=== PATIENT | female | born 1960 | race Hispanic/Latino ===

== ENCOUNTER 2025-04-06 10:28 | Inpatient (IN) | payer SELFPAY ==
[~2025-04-06] VITALS: Ht 170.2 cm; Wt 82.1 kg
[2025-04-06] VITALS (27 sets, daily range): BP systolic 141–225; BP diastolic 54–108; PULSE 80–98; RESP 17–45; TEMP 97–98.2; O2SAT 93–96
[2025-04-06 10:48] LABS: IMMATURE GRANULOCYTE ABSOLUTE 0.03 K/uL (0-1); NUCLEATED RED BLOOD CELLS 0.0 % (0.0-0.19); PLATELET COUNT (AUTO) 236 K/uL (130-400); RED BLOOD CELL COUNT(AUTO) 4.37 MIL/uL (4.00-5.50); RED CELL DISTRIBUTION WIDTH 14.6 % (11.0-15.5); WHITE BLOOD COUNT (AUTO) 8.5 K/uL (4.8-10.8)
--- NOTE | 2025-04-06 10:51 | EKG ---
[facility] Test Date: 2025-04-06 Test Time: 10:38:27 Pat Name: MAURICE BUI Department: ED Room: 227 Gender: F [employer]: [id number] : 1960 Requested By: LEN CORNELL Order Number: [id number] Reading MD: John Jensen Measurements Intervals [place] Rate: 114 P: 67 FL: 173 QRS: 3 QRSD: 109 T: 143 QT: 336 QTc: 462 Interpretive Statements Sinus tachycardia Probable left atrial enlargement LVH with secondary repolarization abnormality No previous ECG available for comparison Electronically Signed On 04-12-2025 10:21:18 CDT by John Jensen Please click the below link to view image of tracing.
[2025-04-06 10:55] LABS: CREATININE 1.1 mg/dL (0.5-1.0); GLOMERULAR FILTR. RATE CALC 56.0 mL/min (>90); GLUCOSE,RANDOM 135.0 mg/dL (70-105); SODIUM SERUM 142.0 mmol/L (136-145); UREA NITROGEN, BLOOD 10.0 mg/dL (7-18)
--- NOTE | 2025-04-06 11:13 | HMCIMG ---
EXAM: CR Chest, 1 View. CLINICAL HISTORY: sob COMPARISON: None provided. FINDINGS: LUNGS: The lungs show no infiltrate or other acute finding. Mild bibasilar airspace disease may reflect atelectasis. PLEURAL SPACES: No evidence of pleural effusion or pneumothorax. MEDIASTINUM: Moderate to severe enlargement of the cardiac silhouette likely reflecting cardiomegaly and/or a pericardial effusion. Mild central pulmonary vascular congestion. BONES: No acute osseous abnormality. IMPRESSION: 1. Moderate to severe cardiomegaly and/or pericardial effusion with mild pulmonary vascular congestion. /[place]
--- NOTE | 2025-04-06 11:43 | ERN ---
General Chief Complaint: Shortness of Breath Stated Complaint: SOB, LLE SWELLING Time Seen by MD: 10:30 Source: patient History of Present Illness Initial Comments Patient is a 64-year-old female coming in complaining of shortness of breath. Patient states that this has been ongoing for three weeks. She also states that she used to follow up with her doctor but has been two years that she has not seen him. She states that shortness of breath has increased with ambulation. Allergies: Coded Allergies: No Known Allergies (Unverified Allergy, Unknown, 04/06/25) Past Medical History Past Medical History: Hypertension Past Surgical History: ROS Dictation CONSTITUTIONAL: No chills, no fever, no weakness, no diaphoresis, no malaise. HEAD/FACE: No signs of trauma. EENT: No eye pain, no blurred vision, no tearing, no double vision, no ear pain, no ear discharge, no nose pain, no nasal congestion, no throat pain, no throat swelling, no mouth pain. RESPIRATORY: No cough, no orthopnea, no SOB, no stridor, no wheezing. CARDIOVASCULAR: No chest pain, no edema, no palpitations, no syncope. GASTROINTESTINAL/ABDOMINAL: No abdominal pain, no constipation, no diarrhea, no nausea, no vomiting. GENITOURINARY: No abnormal discharge, no dysuria, no frequent urination, no hematuria. No complaints of pain in the genitals. MUSCULOSKELETAL: No back pain, no gout, no joint pain, no joint swelling, no muscle pain, no muscle stiffness, no neck pain. INTEGUMENTARY: No change in color, no change in hair/nails, no dryness, no lesion, no lumps, no rash. NEUROLOGICAL/PSYCH: No anxiety, not depressed, no emotional problem, no headache, no numbness, no pre-existing deficit, no history of seizures, no tremors, no weakness. HEMATOLOGIC/LYMPHATIC: Not anemic, no history of blood clots, no apparent bleeding, no bruising, glands not swollen. All Systems Negative, Except as Noted. Physical Exam Physical Exam Dictation VITAL SIGNS: Reviewed. GENERAL APPEARANCE: Alert, oriented x3, no acute distress, obese. HEAD AND FACE: Non-traumatic. EYES: PERRL, pink conjunctivas, eyelid no trauma, anterior chamber clear. EARS: Pinnas intact and no signs of trauma or erythema. Ear canals clear and no discharge. TMs no erythema. NOSE: No discharge, no bleeding. OROPHARYNX: Mouth normal, teeth no caries, tongue pink. Pharynx clear, no erythema. Tonsils no exudates, no abscesses noted. Mucous membrane moist. NECK: Supple, non-tender, no thyromegaly, no masses, no JVD, no bruits. BREAST: Deferred. CHEST: No tenderness, no crepitus, no paradoxical movement, no retractions. LUNGS: Clear, well-ventilated, symmetric, no rales, no wheezing, no rhonchi, no stridor, good breath sounds bilaterally. HEART: Regular rate, regular rhythm, no murmur, no gallops. VASCULAR: No peripheral edema. ABDOMEN: Soft, positive bowel sounds, nondistended, no guarding, nontender, no rebound, no masses no hepatomegaly, no splenomegaly, no Valdez's sign, no hernias. RECTAL: Deferred. GENITAL: Deferred. NEUROLOGICAL: Normal speech, gross motor function intact, gross sensory function intact. MUSCULOSKELETAL: Neck nontender, full range of motion, back nontender, full range of motion. EXTREMITIES: Nontender, full range of motion. SKIN: Color pink, dry, no turgor, no rash, no lacerations, no abrasions, no contusions. LYMPHATICS: Deferred. Results Laboratory and Microbiology Lab and Micro Result Laboratory Tests Test 04/06/25 10:40 04/06/25 11:10 White Blood Count 8.5 K/uL (4.8-10.8) Red Blood Count 4.37 MIL/uL (4.00-5.50) Hemoglobin 12.6 g/dL (12.0-16.0) Hematocrit 39.4 % (36-48) Mean Corpuscular Volume 90.2 fL (79-99) Mean Corpuscular Hemoglobin 28.8 pg (27.0-33.0) Mean Corpuscular Hemoglobin Concent 32.0 g/dL (32.0-36.0) Red Cell Distribution Width 14.6 % (11.0-15.5) Platelet Count 236 K/uL (130-400) Mean Platelet Volume 10.0 fL (7.5-10.5) Immature Granulocyte % (Auto) 0.4 % (0-1) Neutrophils (%) (Auto) 76.2 % (40.0-77.0) Lymphocytes (%) (Auto) 14.8 % (21.0-51.0) L Monocytes (%) (Auto) 6.2 % (3.0-13.0) Eosinophils (%) (Auto) 1.8 % (0.0-8.0) Basophils (%) (Auto) 0.6 % (0.0-5.0) Neutrophils # (Auto) 6.5 K/uL (1.8-7.7) Lymphocytes # (Auto) 1.3 K/uL (1.0-4.8) Monocytes # (Auto) 0.5 K/uL (0.1-1.0) Eosinophils # (Auto) 0.15 K/uL (0.00-0.70) Basophils # (Auto) 0.05 K/uL (0.00-0.20) Absolute Immature Granulocyte (auto 0.03 K/uL (0-1) Nucleated Red Blood Cells 0.0 % (0.0-0.19) Sodium Level 142 mmol/L (136-145) Potassium Level 3.7 mmol/L (3.5-5.1) Chloride Level 106 mmol/L (101-111) Carbon Dioxide Level 28 mmol/L (21-32) Blood Urea Nitrogen 10 mg/dL (7-18) Creatinine 1.1 mg/dL (0.5-1.0) H Glomerular Filtration Rate Calc 56 mL/min (>90) Random Glucose 135 mg/dL (70-105) H Total Calcium 8.8 mg/dL (8.5-10.1) Magnesium Level 1.90 mg/dL (1.80-2.40) Troponin I High Sensitivity 22 ng/L (4-50) B-Type Natriuretic Peptide 1440 pg/mL (0-100) H Urine Color YELLOW (YELLOW) Urine Appearance CLOUDY (CLEAR) H Urine pH 6.5 (5.0-8.0) Urine Specific [place] 1.021 (1.001-1.031) Urine Protein 300 mg/dL (NEGATIVE) H Urine Glucose (UA) NEGATIVE mg/dL (NEGATIVE) Urine Ketones NEGATIVE mg/dL (NEGATIVE) Urine Occult Blood +- (TRACE) (NEGATIVE) H Urine Nitrate 2+ (NEGATIVE) H Urine Bilirubin NEGATIVE mg/dL (NEGATIVE) Urine Urobilinogen 3 mg/dL (0.2-1.0) H Urine Leukocyte Esterase NEGATIVE [place]/uL Urine RBC 2-5 /HPF (0-1) H Urine WBC 6-10 /HPF (0-1) H Urine Squamous Epithelial Cells FEW /HPF (0-2) Urine Bacteria MANY /HPF (None Seen) Urine Hyaline Casts 6-10 /LPF (0-1 /LPF) H Labs Reviewed?: Yes EKG/XRAY/US/CT/MRI EKG Comment 07/07/2025 time 10:38 a.m. Ventricular rate [address] wave elevation or depression X-RAY Comment [facility] [address] [place] [address] [phone] IMAGING REPORT Signed PATIENT: MAURICE BUI MR#: [id number] : 1960 SEX: F AGE: 64 LOCATION: EDH ORDER 1034 STATUS: REG REPORT#: [id number] SERVICE 1031 REASON: sob ORDERING PHYSICIAN: LEN CORNELL MD PROCEDURE: CXR1VW - CHEST 1VW EXAM: CR Chest, 1 View. CLINICAL HISTORY: sob COMPARISON: None provided. FINDINGS: LUNGS: The lungs show no infiltrate or other acute finding. Mild bibasilar airspace disease may reflect atelectasis. PLEURAL SPACES: No evidence of pleural effusion or pneumothorax. MEDIASTINUM: Moderate to severe enlargement of the cardiac silhouette likely reflecting cardiomegaly and/or a pericardial effusion. Mild central pulmonary vascular congestion. BONES: No acute osseous abnormality. IMPRESSION: 1. Moderate to severe cardiomegaly and/or pericardial effusion with mild pulmonary vascular congestion. /[place] DICTATED BY: JESSICA TRIVEDI Jr., MD DATE: 04/06/251211 ELECTRONICALLY SIGNED BY: JESSICA TRIVEDI Jr., MD DATE: 04/06/251211 [facility] MDM: Differential diagnosis: Shortness of breath, pulmonary congestion, acute on chronic CHF exacerbation Rationale: Tests considered and ordered secondary to shared decision making include: labs, ECG and radiology Previous outside records reviewed: Old ER visits. Risk of complication and/or morbidity or mortality of patient management: None Medications-Per medication reconciliation Need for hospitalization: Patient does meet criteria for hospitalization. Need for emergency major/minor surgery: No There are no social concerns with this patient. Prescription drug management Prescriptions will include symptomatic care Patient's prior external medical records from other ER visits were reviewed by me as indicated. Prior testing and results from previous visits were reviewed. Prior tests were taken into account with medical decision making and resource utilization, independent historian/historians were used to obtain complete medical history. I independently interpreted the test that were performed, results were reviewed by me and considered findings on radiology if ordered. Medical management and examination interpretation discussions were had by me with other qualified healthcare professionals as indicated for the patient's care. She will be admitted under the care of hospitalist group for ongoing management. ED Course Orders Procedure Category Date Status Time Cbc With Differential LAB 04/06/25 Complete 10:31 Chest 1vw RAD 04/06/25 Resulted 10:31 12 Lead Ekg Tracing- EKG 04/06/25 Complete Technical 10:31 Magnesium LAB 04/06/25 Complete 10:31 Troponin I High LAB 04/06/25 Complete Sensitivity 10:31 Basic Metabolic Panel LAB 04/06/25 Complete 10:31 B-Type Natriuretic LAB 04/06/25 Complete Peptide 10:31 Urinalysis LAB 04/06/25 Complete W/Microscopic 10:31 Culture Urine DENIA 04/06/25 In Process 11:58 Furosemide 40mg Vial PHA 04/06/25 In Process (Lasix 40mg Vial) 13:30 Current Medications Medications (Trade) Dose Ordered Sig/Thuy Route PRN Reason Start Time Stop Time Status Last Admin Dose Admin Furosemide (LASix 40MG VIAL) 40 mg ONCE IV 04/06/25 13:30 04/06/25 17:30 04/06/25 13:07 Vital Signs Date Time Temp Pulse Resp B/P (MAP) Pulse Ox O2 Delivery O2 Flow Rate FiO2 04/06/25 11:17 98.4 97 22 188/99 97 Room Air* 0 21 04/06/25 10:46 108 24 197/116 97 Room Air* 0 21 04/06/25 10:30 98.4 112 20 206/134 97 Room Air 0 DX & DISP Disposition: Inpatient Decision to Admit Time: 13:32 Departure Impression: Primary Impression: Acute exacerbation of chronic heart failure Additional Impression: Pulmonary congestion Condition: Stable Referrals: SELF,REFERRAL (PCP) LEN CORNELL MD Apr 06, 2025 11:43
[2025-04-06 11:54] LABS: APPEARANCE,URINE CLOUDY (CLEAR); GLUCOSE, URINE (UA) NEGATIVE (NEGATIVE); LEUKOCYTE ESTERASE ,URINE NEGATIVE Leu/uL (NEGATIVE); NITRATE,URINE 2+ (NEGATIVE); OCCULT BLOOD,URINE +- (TRACE) (NEGATIVE)
[2025-04-06 12:30] LABS: SQUAMOUS EPITHELIAL CELL,UR FEW /HPF (0-2)
--- NOTE | 2025-04-06 13:55 | NUR ---
DR. LOVE AT BEDSIDE, EVALUATED PT, PERFORMED PHYSICAL EXAM AND SPOKE TO PT ABOUT ADMISSION.
[2025-04-06] MEDS ORDERED: PoTASSium chl 10% ELIXIR 20MEQ 20 MEQ/15 ML UDCUP PO PRN (14:30)
[2025-04-06] MEDS ORDERED: MAGNESIUM 2GM PREMIX 50ML 50 ML IV PRN (14:30)
[2025-04-06] MEDS ORDERED: ALBUTEROL 0.083% 2.5 MG/3 ML INH IH PRN (14:30)
--- NOTE | 2025-04-06 14:32 | HP ---
[facility] HISTORY AND PHYSICAL Date of Service: Apr 06, 2025 Time of Service: 14:27 HISTORY OF PRESENT ILLNESS: This is a 64-year-old female with past medical history of hypertension who presents to the emergency department due to progressive shortness of breath and worsening lower extremity edema. The patient reports that her symptoms began around July of last year, when she started experiencing dyspnea with regular household activities. Over the past several months, her shortness of breath has gradually worsened, limiting her daily functionality. Approximately1 month ago, she began noticing swelling in both legs, which has since progressed to involve the thighs and pelvic region. She reports significant discomfort and difficulty ambulating due to the edema. She denies recent weight gain but notes a sensation of heaviness in the legs. She has not seen her primary care provider in approximately 2 years. At that time, she was diagnosed with hypertension and was prescribed lisinopril 15 mg daily, which she is compliant with. On arrival to the ED, her blood pressure was markedly elevated at 206/134 mmHg with a heart rate of 112 bpm. Initial labs unremarkable other than an elevated BNP of 1440 pg/mL and a creatinine of 1.1 mg/dL. Urinalysis was positive for p rotein (300), nitrites, and blood. A chest X-ray showed moderate pericardial effusion and moderate pulmonary vascular congestion. She has been admitting to the PCCU for management of hypertension urgency and possible congestive heart failure. Cardiology has been consulted and we are going to follow recommendations. The patient was started on Furosemide 40 mg BID, we will continue to monitor the blood pressure. One dose of Hydralazine 10 mg was administered and will be continued p.r.n. for systolic blood pressure persistently higher than systolic >180. Renal ultrasound and artery Doppler ordered. We will follow up on results and consult nephrology if needed. REVIEW OF SYSTEMS CONSTITUTIONAL: Denies fevers, chills, or night sweats. No unintentional weight loss reported. NEUROLOGICAL: Denies headache, amaurosis fugax, motor weakness, sensory deficit, vertigo/spinning sensation, gait abnormalities, or tremors. ENT: No hearing loss, otalgia, otorrhea, rhinitis, rhinorrhea, hoarseness, or sore throat. CARDIOVASCULAR: Complain of Palpitations. Denies any exertional angina, dyspnea on exertion, orthopnea, paroxysmal nocturnal dyspnea, life-threatening arrhythmias, claudication. PULMONARY: Complain of shortness of breath, worse with activity. Denies cough or hemoptysis. SLEEP: Denies morning headaches, daytime somnolence or napping. Denies difficulty falling asleep, staying asleep, waking from sleep. Denies knowledge of snoring. GASTROINTESTINAL: Denies any type of dysphagia to either liquids or solids. Denies nausea, vomiting, pyrosis, early satiety, abdominal pain, diarrhea, constipation, or changes in stool consistency or caliber. Denies coffee-ground emesis, hematemesis, hematochezia, or melanotic stools. GENITOURINARY: Denies frequency, urgency, nocturia, hematuria or incontinence (Storage/Irritative symptoms.) Low urinary stream, straining to void, urinary intermittency or hesitancy, splitting of the voiding stream, terminal dribbling. ENDOCRINOLOGIC: Denies polyuria, polydipsia, polyphagia or heat/cold intolerances. HEMATOLOGIC: Denies thrombophilia/previous clots, or coagulopathy/bleeding disorders. ONCOLOGIC: Denies personal history of malignancy. DERMATOLOGIC: Denies rashes or pruritus. PAST MEDICAL HISTORY: Hypertension PAST SURGICAL HISTORY: PAST SOCIAL HISTORY: Patient does not consume alcohol and denies use of illicit drugs Smoking at the age of 15 and quit in 2000 FAMILY HISTORY: Non-contributory Coded Allergies: No Known Allergies (Unverified Allergy, Unknown, 04/06/25) PHYSICAL EXAM GENERAL APPEARANCE: The patient is awake, alert, and oriented, in no acute cardiopulmonary distress. NEUROLOGICAL: Cranial nerves II-XII grossly intact. Motor is 5/5 in bilateral upper and lower extremities proximal to distal. No sensory deficits. HEENT: Face is symmetric. Pupils are equal and reactive. Extraocular movements are intact. NECK: Supple. JVD present. No thyromegaly. No submental, submandibular, pre- /postauricular, occipital or supraclavicular lymphadenopathy. CHEST: Normal chest expansion. Telemetry. LUNGS: Bibasilar crackles. No wheezing. Mild increasing work of breathing with exertion. CARDIOVASCULAR: Tachycardic. S1 and S2 normal. No appreciable rubs, murmurs or gallops. ABDOMEN: Soft, nontender, and nondistended. There is no rebound, voluntary guarding, or rigidity. : Deferred. No [place]. EXTREMITIES: 3+ pitting edema bilateral lower extremity up to the pelvis. No erythema or warmth. No calf tenderness. SKIN: No skin breakdown. Vital Sign (Last 24 Hours) 04/06/25 11:17 Temp 98.4 Pulse 97 Resp 22 B/P (MAP) 188/99 Pulse Ox 97 O2 Delivery Room Air* O2 Flow Rate 0 FiO2 21 LABS: Laboratory: Test 04/06/25 11:10 04/06/25 10:40 Range/Units Urine Color YELLOW YELLOW Urine Appearance CLOUDY H CLEAR Urine pH 6.5 5.0-8.0 Urine Specific [place] 1.021 1.001-1.031 Urine Protein 300 H NEGATIVE mg/dL Urine Glucose (UA) NEGATIVE NEGATIVE mg/dL Urine Ketones NEGATIVE NEGATIVE mg/dL Urine Occult Blood +- (TRACE) H NEGATIVE Urine Nitrate 2+ H NEGATIVE Urine Bilirubin NEGATIVE NEGATIVE mg/dL Urine Urobilinogen 3 H 0.2-1.0 mg/dL Urine Leukocyte Esterase NEGATIVE NEGATIVE [place]/uL Urine RBC 2-5 H 0-1 /HPF Urine WBC 6-10 H 0-1 /HPF Urine Squamous Epithelial Cells FEW 0-2 /HPF Urine Bacteria MANY None Seen /HPF Urine Hyaline Casts 6-10 H 0-1 /LPF /LPF White Blood Count 8.5 4.8-10.8 K/uL Red Blood Count 4.37 4.00-5.50 MIL/uL Hemoglobin 12.6 12.0-16.0 g/dL Hematocrit 39.4 36-48 % Mean Corpuscular Volume 90.2 79-99 fL Mean Corpuscular Hemoglobin 28.8 27.0-33.0 pg Mean Corpuscular Hemoglobin Concent 32.0 32.0-36.0 g/dL Red Cell Distribution Width 14.6 11.0-15.5 % Platelet Count 236 130-400 K/uL Mean Platelet Volume 10.0 7.5-10.5 fL Immature Granulocyte % (Auto) 0.4 0-1 % Neutrophils (%) (Auto) 76.2 40.0-77.0 % Lymphocytes (%) (Auto) 14.8 L 21.0-51.0 % Monocytes (%) (Auto) 6.2 3.0-13.0 % Eosinophils (%) (Auto) 1.8 0.0-8.0 % Basophils (%) (Auto) 0.6 0.0-5.0 % Neutrophils # (Auto) 6.5 1.8-7.7 K/uL Lymphocytes # (Auto) 1.3 1.0-4.8 K/uL Monocytes # (Auto) 0.5 0.1-1.0 K/uL Eosinophils # (Auto) 0.15 0.00-0.70 K/uL Basophils # (Auto) 0.05 0.00-0.20 K/uL Absolute Immature Granulocyte (auto 0.03 0-1 K/uL Nucleated Red Blood Cells 0.0 0.0-0.19 % Sodium Level 142 136-145 mmol/L Potassium Level 3.7 3.5-5.1 mmol/L Chloride Level 106 101-111 mmol/L Carbon Dioxide Level 28 21-32 mmol/L Blood Urea Nitrogen 10 7-18 mg/dL Creatinine 1.1 H 0.5-1.0 mg/dL Glomerular Filtration Rate Calc 56 >90 mL/min Random Glucose 135 H 70-105 mg/dL Total Calcium 8.8 8.5-10.1 mg/dL Magnesium Level 1.90 1.80-2.40 mg/dL Troponin I High Sensitivity 22 4-50 ng/L B-Type Natriuretic Peptide 1440 H 0-100 pg/mL Current Medications Medications (Trade) Dose Ordered Sig/Thuy Route PRN Reason Start Time Stop Time Status Last Admin Dose Admin Acetaminophen (TYLenol 325MG TAB) 650 mg Q4H PRN PO MILD PAIN (1-3) 04/06/25 14:30 05/06/25 14:29 Acetaminophen (TYLenol 325MG TAB) 650 mg Q6H PRN PO TEMPERATURE GREATER THAN 101.5 04/06/25 14:30 05/06/25 14:29 Albuterol Sulfate (Proventil 0.083% 2.5mg/3ml) 2.5 mg [id number] PRN IH RESPIRATORY SYMPTOMS 04/06/25 14:30 05/06/25 14:29 Famotidine (Pepcid 20mg Vial) 20 mg BID IV 04/06/25 21:00 05/06/25 20:59 Furosemide (LASix 40MG VIAL) 40 mg BID IVP 04/06/25 21:00 05/06/25 20:59 Furosemide (LASix 40MG VIAL) 40 mg ONCE IV 04/06/25 13:30 04/06/25 14:20 DC 04/06/25 13:07 40 MG Magnesium Sulfate 50 ml @ 0 mls/hr PROTOCOL PRN IV MAGNESIUM PROTOCOL 04/06/25 14:30 05/06/25 14:29 Potassium Chloride 100 ml @ 50 mls/hr AD PRN IV POTASSIUM PROTOCOL 04/06/25 14:30 05/06/25 14:29 Potassium Chloride 100 ml @ 100 mls/hr AD PRN IV POTASSIUM PROTOCOL 04/06/25 14:30 04/06/25 14:22 DC Potassium Chloride (K-Dur/Klor-Con 20meq) 20 meq AD PRN PO POTASSIUM PROTOCOL 04/06/25 14:30 05/06/25 14:29 Potassium Chloride (KCl 10% Elixir 20meq/15ml) 20 meq AD PRN PO POTASSIUM PROTOCOL 04/06/25 14:30 05/06/25 14:29 DIAGNOSTICS / RADIOLOGY: PATIENT: MAURICE BUI MR#: [id number] : 1960 SEX: F AGE: 64 LOCATION: EDH ORDER 1034 STATUS: [facility] REPORT#: [id number] SERVICE 1031 REASON: sob ORDERING PHYSICIAN: LEN CORNELL MD PROCEDURE: CXR1VW - CHEST 1VW EXAM: CR Chest, 1 View. CLINICAL HISTORY: sob COMPARISON: None provided. FINDINGS: LUNGS: The lungs show no infiltrate or other acute finding. Mild bibasilar airspace disease may reflect atelectasis. PLEURAL SPACES: No evidence of pleural effusion or pneumothorax. MEDIASTINUM: Moderate to severe enlargement of the cardiac silhouette likely reflecting cardiomegaly and/or a pericardial effusion. Mild central pulmonary vascular congestion. BONES: No acute osseous abnormality. IMPRESSION: 1. Moderate to severe cardiomegaly and/or pericardial effusion with mild pulmonary vascular congestion. /[place] DICTATED BY: JESSICA TRIVEDI Jr., MD DATE: 04/06/25 1212 ELECTRONICALLY SIGNED BY: JESSICA TRIVEDI Jr., MD DATE: 04/06/25 1212 ASSESSMENT: Hypertensive urgency POA Possible Congestive Heart Failure POA Pericardial effusion POA Proteinuria POA Possible CKD Uncontrolled chronic hypertension PLAN: Hypertensive urgency Admit to PCCU with telemetry CT Head and brain ordered to rule out any bleed Administer hydralazine 10 mg IV p.r.n. if BP >180 mmHg (1 dose given) Transition to oral antihypertensive as tolerated Possible Congestive Heart Failure Cardiology consulted Continue Furosemide 40 mg b.i.d. Daily weights, strict I/Os Monitor for signs of pulmonary edema. Pericardial effusion Echocardiogram to assess size/hemodynamic impact. Possible CKD Proteinuria Urine protein/creatinine ratio ordered. Renal ultrasound ordered Renal artery Doppler ordered Trend temperature and WBC UA culture pending. Start antibiotic as needed PT ordered Continue GI and DVT prophylaxis Reconcile Medications when available ATTESTATION BY PHYSICIAN I have seen and examined the patient. I reviewed the documentation, medical decision making, and treatment plan as noted by the resident provider above. I agree with the findings and plan of care. SAW OSCAR MD, GERARDO MD Apr 06, 2025 14:32
[2025-04-06 14:49] LABS: CREATININE 1.0 mg/dL (0.5-1.0); GLOMERULAR FILTR. RATE CALC 63.0 mL/min (>90); GLUCOSE,RANDOM 97.0 mg/dL (70-105); SODIUM SERUM 141.0 mmol/L (136-145); UREA NITROGEN, BLOOD 11.0 mg/dL (7-18)
[2025-04-06 14:58] LABS: ASPARTATE AMINOTRANSFERASE 21.0 U/L (10-37); TOTAL PROTEIN, SERUM 7.1 g/dL (6.0-8.3)
[2025-04-06 15:04] LABS: PHOSPHORUS 3.7 mg/dL (2.5-4.9)
--- NOTE | 2025-04-06 15:14 | NUR ---
DCP: HOME Pt currently lives with dgt in law. Pt does not report insecurities with food, senior living, and/or utilities. Pt currently works at [employer]. Pt does not have DME, home health, or provider services. Pt is able to complete ADLs independently. PCP is [facility] and uses [facility] for any RX needs. At [place] pt will want to go home and family can assist with transportation. Addendum: 04/06/25 at 1517 by MOISÉS RODRÍGUEZ SS Amended: Links added.
--- NOTE | 2025-04-06 15:54 | HMCIMG ---
EXAM: CT Head Without IV contrast. CLINICAL HISTORY: hypertension urgency TECHNIQUE: Axial computed tomography images of the head/brain without intravenous contrast. COMPARISON: None provided. FINDINGS: BRAIN: No evidence of acute hemorrhage. No mass lesion. No CT evidence for acute territorial infarct. No midline shift or extra-axial collections. VENTRICLES: No hydrocephalus. ORBITS: The orbits are unremarkable. SINUSES AND MASTOIDS: The paranasal sinuses and mastoid air cells are clear. BONES: No fracture. SOFT TISSUES: Unremarkable. IMPRESSION: No acute intracranial abnormality. /[place]
--- NOTE | 2025-04-06 16:07 | NUR ---
FIRST ATTEMPT AT REPORT
--- NOTE | 2025-04-06 16:45 | NUR ---
SECOND ATTEMPT AT REPORT
--- NOTE | 2025-04-06 18:00 | HMCIMG ---
EXAM: US Duplex Arterial/Venous of the Abdomen, Complete. CLINICAL HISTORY: Chronic Kidney Disease (CKD) TECHNIQUE: Real-time duplex ultrasound scan of the arterial and venous flow of the pelvis with color Doppler flow and spectral waveform analysis. COMPARISON: None provided. FINDINGS: AORTA: Peak systolic velocity (PSV) of 104 cm/sec. RENAL ARTERIES: Right renal artery with peak systolic velocity of 226 cm/sec and renal artery to aorta ratio (RAR) of 2.2, consistent with <60% stenosis. Left renal artery with elevated peak systolic velocity of 384 cm/sec and RAR of 3.7, consistent with >60% stenosis. Size: 9.7 x 4.3 x 4.2 cm. Segmental arteries demonstrate tardus-parvus waveform, suggestive of downstream arterial resistance and supportive of hemodynamically significant stenosis. Size: 10.8 x 4.5 x 5.2 cm. Segmental arteries demonstrate tardus-parvus waveform, suggestive of downstream arterial resistance and supportive of hemodynamically significant stenosis, more prominently on the left. IMPRESSION: 1. Left renal artery stenosis >60% with tardus-parvus waveform in segmental arteries, suggesting downstream arterial resistance and supportive of hemodynamically significant stenosis. 2. Right renal artery stenosis <60% with tardus-parvus waveform in segmental arteries, suggesting downstream arterial resistance. /[place]
--- NOTE | 2025-04-06 18:07 | NUR ---
DR LOVE NOTIFED VIA TELEPHONE OF PATIENTS B/P IN THE 200. PATIENT IS ASYMPTOMATIC. ORDERS RECEIVED. PATIENT IS TO BE STARTED ON A CARDENE DRIP AND MOVED TO ICU STAT.
--- NOTE | 2025-04-06 18:25 | NUR ---
TRANSFER- ICU RECEIVED PATIENT TRANSFER INTO ICU FROM [facility] FOR KEYLA WALKER.
--- NOTE | 2025-04-06 18:30 | NUR ---
HOME MEDICATIONS NOT AVAILABLE. PATIENT STATES SHE HAS NOT SEEN AN PCP IN 2 YEARS & HAS NOT BEEN ABLE TO REFILL HER MEDICATIONS. SHE STATES SHE TAKES 1 MEDICATIONS, BUT DOES NOT RECALL THE NAME. ASKED PATIENT TO HAVE FAMILY BRING HER MEDICATION BOTTLES.
[2025-04-06] MEDS: FAMOTIDINE 20MG VIAL IV SCH (21:28)
[2025-04-07] VITALS (57 sets, daily range): BP systolic 126–174; BP diastolic 60–97; PULSE 77–94; RESP 13–33; TEMP 98–98.8; O2SAT 92–96
[2025-04-07 04:24] LABS: IMMATURE GRANULOCYTE ABSOLUTE 0.02 K/uL (0-1); NUCLEATED RED BLOOD CELLS 0.0 % (0.0-0.19); PLATELET COUNT (AUTO) 193 K/uL (130-400); RED BLOOD CELL COUNT(AUTO) 4.24 MIL/uL (4.00-5.50); RED CELL DISTRIBUTION WIDTH 14.4 % (11.0-15.5); WHITE BLOOD COUNT (AUTO) 7.0 K/uL (4.8-10.8)
[2025-04-07 04:35] LABS: CREATININE 0.9 mg/dL (0.5-1.0); GLOMERULAR FILTR. RATE CALC 71.0 mL/min (>90); GLUCOSE,RANDOM 86.0 mg/dL (70-105); SODIUM SERUM 141.0 mmol/L (136-145); UREA NITROGEN, BLOOD 8.0 mg/dL (7-18)
[2025-04-07] MEDS: PoTASSium chloRIDE 20MEQ ER 20 MEQ ERTAB PO PRN (05:27)
--- NOTE | 2025-04-07 09:44 | PN ---
[facility] PROGRESS NOTE Date of Service: Apr 07, 2025 Time of Service: 09:44 SUBJECTIVE: This is a 64-year-old female with past medical history of hypertension who presents to the emergency department due to progressive shortness of breath and worsening lower extremity edema. The patient reports that her symptoms began around July of last year, when she started experiencing dyspnea with regular household activities. Over the past several months, her shortness of breath has gradually worsened, limiting her daily functionality. Approximately1 month ago, she began noticing swelling in both legs, which has since progressed to involve the thighs and pelvic region. She reports significant discomfort and difficulty ambulating due to the edema. She denies recent weight gain but notes a sensation of heaviness in the legs. She has not seen her primary care provider in approximately 2 years. At that time, she was diagnosed with hypertension and was prescribed lisinopril 15 mg daily, which she is compliant with. On arrival to the ED, her blood pressure was markedly elevated at 206/134 mmHg with a heart rate of 112 bpm. Initial labs unremarkable other than an elevated BNP of 1440 pg/mL and a creatinine of 1.1 mg/dL. Urinalysis was positive for protein (300), nitrites, and blood. A chest X-ray showed moderate pericardial effusion and moderate pulmonary vascular congestion. She was given two doses of hydralazine and furosemide 40mg in the ER. After this her blood pressure is 225/106 so she was started on nicardipine drip and moved to [facility]. After the nicardipine drip her blood pressure is 152/65. Nicardipine drip was discontinued and furosemide 40 mg was added. Cardiology consult, echocardiogram and protein creatinine ratio are ordered. 04/07/2025: She was seen in room 215. She is having no symptoms. His vitals are in the normal except for blood pressure which is 155/71. Her labs show that potassium is 3, creatinine is 0.9, Albumin is 3.4. Her head CT is normal. US abdominal arterial study showed left artery stenosis >60% and right artery stenosis <60%. Her echocardiogram showed that the left ventricle is mildly dilated, LVEF is 30-35%, hypokinetic basal inferoseptal segment, stage II diastolic dysfunction, the right ventricle is severely dilated, right ventricular systolic function is mildly reduced, the left atrium is mildly dilated, the right atrium is severely dilated. cardiology saw the patient and they recommended to continue lasix 40mg, losartan 50mg and start metoprolol tartarate 25mg, spironolactone 25mg, also patient need to go an ischemic evaluation to assess coronary anatomy prior to discharge. Will follow their recommendations. REVIEW OF SYSTEMS CONSTITUTIONAL: Denies fevers, chills, or night sweats. No unintentional weight loss reported. NEUROLOGICAL: Denies headache, amaurosis fugax, motor weakness, sensory deficit, vertigo/spinning sensation, gait abnormalities, or tremors. ENT: No hearing loss, otalgia, otorrhea, rhinitis, rhinorrhea, hoarseness, or sore throat. CARDIOVASCULAR: Denies any exertional angina, palpitations, dyspnea on exertion, orthopnea, paroxysmal nocturnal dyspnea, life-threatening arrhythmias, claudication. PULMONARY: No shortness of breath, worse with activity. Denies cough or hemoptysis. SLEEP: Denies morning headaches, daytime somnolence or napping. Denies difficulty falling asleep, staying asleep, waking from sleep. Denies knowledge of snoring. GASTROINTESTINAL: Denies any type of dysphagia to either liquids or solids. Denies nausea, vomiting, pyrosis, early satiety, abdominal pain, diarrhea, constipation, or changes in stool consistency or caliber. Denies coffee-ground emesis, hematemesis, hematochezia, or melanotic stools. GENITOURINARY: Denies frequency, urgency, nocturia, hematuria or incontinence (Storage/Irritative symptoms.) Low urinary stream, straining to void, urinary intermittency or hesitancy, splitting of the voiding stream, terminal dribbling. ENDOCRINOLOGIC: Denies polyuria, polydipsia, polyphagia or heat/cold intolerances. HEMATOLOGIC: Denies thrombophilia/previous clots, or coagulopathy/bleeding disorders. ONCOLOGIC: Denies personal history of malignancy. DERMATOLOGIC: Denies rashes or pruritus. PHYSICAL EXAM GENERAL APPEARANCE: The patient is awake, alert, and oriented, in no acute cardiopulmonary distress. NEUROLOGICAL: Cranial nerves II-XII grossly intact. Motor is 5/5 in bilateral upper and lower extremities proximal to distal. No sensory deficits. HEENT: Face is symmetric. Pupils are equal and reactive. Extraocular movements are intact. NECK: Supple. JVD present. No thyromegaly. No submental, submandibular, pre- /postauricular, occipital or supraclavicular lymphadenopathy. CHEST: Normal chest expansion. Telemetry. LUNGS: Bibasilar crackles. No wheezing. Mild increasing work of breathing with exertion. CARDIOVASCULAR: Tachycardic. S1 and S2 normal. No appreciable rubs, murmurs or gallops. ABDOMEN: Soft, nontender, and nondistended. There is no rebound, voluntary guarding, or rigidity. : Deferred. No [place]. EXTREMITIES: 3+ pitting edema bilateral lower extremity up to the pelvis. No erythema or warmth. No calf tenderness. SKIN: No skin breakdown. Vital Signs (last 8hr) Date Time Temp Pulse Resp B/P (MAP) Pulse Ox O2 Delivery O2 Flow Rate FiO2 04/07/25 07:04 81 16 N/Cannula Low lpm 2.0 28 04/07/25 06:57 84 20 144/71 (95) 96 04/07/25 06:42 84 17 147/77 (100) 94 04/07/25 06:27 77 20 139/73 (95) 95 04/07/25 06:12 81 17 142/72 (95) 94 04/07/25 05:57 84 19 145/77 (99) 94 04/07/25 05:42 78 17 140/70 (93) 96 04/07/25 05:27 77 17 150/65 (93) 96 04/07/25 05:12 83 19 154/71 (98) 95 04/07/25 04:57 84 20 155/71 (99) 92 04/07/25 04:42 83 20 160/80 (106) 92 04/07/25 04:27 81 18 143/72 (95) 92 04/07/25 04:12 84 18 131/66 (87) 94 04/07/25 04:00 96 Nasal Cannula* 2 28 04/07/25 03:56 98.4 86 21 137/83 (101) 93 04/07/25 03:42 94 23 130/79 (96) 92 04/07/25 03:27 88 18 141/78 (99) 93 04/07/25 03:12 90 19 147/79 (101) 95 04/07/25 02:57 86 19 146/78 (100) 94 04/07/25 02:42 81 18 140/73 (95) 92 04/07/25 02:27 80 19 140/67 (91) 92 04/07/25 02:12 86 21 138/70 (92) 94 04/07/25 02:04 89 33 136/78 (97) 94 LABS: Laboratory: Test 04/07/25 03:54 04/06/25 14:33 04/06/25 11:10 04/06/25 10:40 Range/Units White Blood Count 7.0 4.8-10.8 K/uL Red Blood Count 4.24 4.00-5.50 MIL/uL Hemoglobin 12.3 12.0-16.0 g/dL Hematocrit 37.2 36-48 % Mean Corpuscular Volume 87.7 79-99 fL Mean Corpuscular Hemoglobin 29.0 27.0-33.0 pg Mean Corpuscular Hemoglobin Concent 33.1 32.0-36.0 g/dL Red Cell Distribution Width 14.4 11.0-15.5 % Platelet Count 193 130-400 K/uL Mean Platelet Volume 10.0 7.5-10.5 fL Immature Granulocyte % (Auto) 0.3 0-1 % Neutrophils (%) (Auto) 72.8 40.0-77.0 % Lymphocytes (%) (Auto) 14.2 L 21.0-51.0 % Monocytes (%) (Auto) 9.3 3.0-13.0 % Eosinophils (%) (Auto) 2.7 0.0-8.0 % Basophils (%) (Auto) 0.7 0.0-5.0 % Neutrophils # (Auto) 5.1 1.8-7.7 K/uL Lymphocytes # (Auto) 1.0 1.0-4.8 K/uL Monocytes # (Auto) 0.7 0.1-1.0 K/uL Eosinophils # (Auto) 0.19 0.00-0.70 K/uL Basophils # (Auto) 0.05 0.00-0.20 K/uL Absolute Immature Granulocyte (auto 0.02 0-1 K/uL Nucleated Red Blood Cells 0.0 0.0-0.19 % Sodium Level 141 136-145 mmol/L Potassium Level 3.0 *L 3.5-5.1 mmol/L Chloride Level 106 101-111 mmol/L Carbon Dioxide Level 28 21-32 mmol/L Blood Urea Nitrogen 8 7-18 mg/dL Creatinine 0.9 0.5-1.0 mg/dL Glomerular Filtration Rate Calc 71 >90 mL/min Random Glucose 86 70-105 mg/dL Total Calcium 8.7 8.5-10.1 mg/dL Phosphorus Level 3.7 2.5-4.9 mg/dL Magnesium Level 1.90 1.80-2.40 mg/dL Total Bilirubin 1.0 0.2-1.0 mg/dL Aspartate Amino Transf (AST/SGOT) 21 10-37 U/L Alanine Aminotransferase (ALT/SGPT) 15 12-78 U/L Alkaline Phosphatase 83 50-136 U/L Troponin I High Sensitivity 23 4-50 ng/L Total Protein 7.1 6.0-8.3 g/dL Albumin 3.4 L 3.5-5.0 g/dL Urine Color YELLOW YELLOW Urine Appearance CLOUDY H CLEAR Urine pH 6.5 5.0-8.0 Urine Specific [place] 1.021 1.001-1.031 Urine Protein 300 H NEGATIVE mg/dL Urine Glucose (UA) NEGATIVE NEGATIVE mg/dL Urine Ketones NEGATIVE NEGATIVE mg/dL Urine Occult Blood +- (TRACE) H NEGATIVE Urine Nitrate 2+ H NEGATIVE Urine Bilirubin NEGATIVE NEGATIVE mg/dL Urine Urobilinogen 3 H 0.2-1.0 mg/dL Urine Leukocyte Esterase NEGATIVE NEGATIVE [place]/uL Urine RBC 2-5 H 0-1 /HPF Urine WBC 6-10 H 0-1 /HPF Urine Squamous Epithelial Cells FEW 0-2 /HPF Urine Bacteria MANY None Seen /HPF Urine Hyaline Casts 6-10 H 0-1 /LPF /LPF B-Type Natriuretic Peptide 1440 H 0-100 pg/mL Current Medications Medications (Trade) Dose Ordered Sig/Thuy Route PRN Reason Start Time Stop Time Status Last Admin Dose Admin Acetaminophen (TYLenol 325MG TAB) 650 mg Q4H PRN PO MILD PAIN (1-3) 04/06/25 14:30 05/06/25 14:29 Acetaminophen (TYLenol 325MG TAB) 650 mg Q6H PRN PO TEMPERATURE GREATER THAN 101.5 04/06/25 14:30 05/06/25 14:29 Albuterol Sulfate (Proventil 0.083% 2.5mg/3ml) 2.5 mg [id number] PRN IH RESPIRATORY SYMPTOMS 04/06/25 14:30 05/06/25 14:29 Famotidine (Pepcid 20mg Vial) 20 mg BID IV 04/06/25 21:00 04/07/25 09:06 DC 04/06/25 21:28 20 MG Famotidine (Pepcid 20mg Tab) 20 mg BID PO 04/07/25 21:00 05/07/25 20:59 Furosemide (LASix 40MG VIAL) 40 mg BID IVP 04/06/25 21:00 05/06/25 20:59 04/07/25 08:56 40 MG Furosemide (LASix 40MG VIAL) 40 mg ONCE IV 04/06/25 13:30 04/06/25 14:20 DC 04/06/25 13:07 40 MG Hydralazine HCl (APRESOLine 20MG INJ) 10 mg ONCE IV 04/06/25 15:00 04/06/25 14:57 DC Hydralazine HCl (APRESOLine 20MG INJ) 10 mg ONCE IV 04/06/25 16:00 04/06/25 18:00 DC 04/06/25 17:53 10 MG Hydralazine HCl (APRESOLine 20MG INJ) 10 mg Q4H PRN IV ADMINISTER FOR SBP > 180 04/06/25 18:20 05/06/25 18:19 Magnesium Sulfate 50 ml @ 0 mls/hr PROTOCOL PRN IV MAGNESIUM PROTOCOL 04/06/25 14:30 05/06/25 14:29 Nicardipine HCl 25 mg/Sodium Chloride 250 ml @ 0 mls/hr PROTOCOL IV 04/06/25 18:30 04/06/25 21:30 DC Nicardipine HCl 25 mg/Sodium Chloride 250 ml @ 0 mls/hr PROTOCOL IV 04/06/25 22:30 05/06/25 18:29 Cancel Nicardipine HCl 50 mg/Sodium Chloride 250 ml @ 0 mls/hr PROTOCOL IV 04/06/25 19:00 05/06/25 18:59 Potassium Chloride 100 ml @ 50 mls/hr AD PRN IV POTASSIUM PROTOCOL 04/06/25 14:30 05/06/25 14:29 Potassium Chloride 100 ml @ 100 mls/hr AD PRN IV POTASSIUM PROTOCOL 04/06/25 14:30 04/06/25 14:22 DC Potassium Chloride (K-Dur/Klor-Con 20meq) 20 meq AD PRN PO POTASSIUM PROTOCOL 04/06/25 14:30 05/06/25 14:29 04/07/25 08:55 20 MEQ Potassium Chloride (KCl 10% Elixir 20meq/15ml) 20 meq AD PRN PO POTASSIUM PROTOCOL 04/06/25 14:30 05/06/25 14:29 DIAGNOSTICS / RADIOLOGY: [facility] [address] [place] [address] IMAGING REPORT Signed PATIENT: MAURICE BUI MR#: [id number] : 1960 SEX: F AGE: 64 LOCATION: 2DH ORDER 140 STATUS: ADM IN [facility] REPORT#: [id number] SERVICE 1401 REASON: ckd ORDERING PHYSICIAN: CHRISS MAR MD PROCEDURE: LELAND ART DO - US RENAL ARTERY DOPPLER EXAM: US Duplex Arterial/Venous of the Abdomen, Complete. CLINICAL HISTORY: Chronic Kidney Disease (CKD) TECHNIQUE: Real-time duplex ultrasound scan of the arterial and venous flow of the pelvis with color Doppler flow and spectral waveform analysis. COMPARISON: None provided. FINDINGS: AORTA: Peak systolic velocity (PSV) of 104 cm/sec. RENAL ARTERIES: Right renal artery with peak systolic velocity of 226 cm/sec and renal artery to aorta ratio (RAR) of 2.2, consistent with <60% stenosis. Left renal artery with elevated peak systolic velocity of 384 cm/sec and RAR of 3.7, consistent with >60% stenosis. Size: 9.7 x 4.3 x 4.2 cm. Segmental arteries demonstrate tardus-parvus waveform, suggestive of downstream arterial resistance and supportive of hemodynamically significant stenosis. Size: 10.8 x 4.5 x 5.2 cm. Segmental arteries demonstrate tardus-parvus waveform, suggestive of downstream arterial resistance and supportive of hemodynamically significant stenosis, more prominently on the left. IMPRESSION: 1. Left renal artery stenosis >60% with tardus-parvus waveform in segmental arteries, suggesting downstream arterial resistance and supportive of hemodynamically significant stenosis. 2. Right renal artery stenosis <60% with tardus-parvus waveform in segmental arteries, suggesting downstream arterial resistance. /[place] DICTATED BY: SERA BREWER MD DATE: 04/06/251858 ELECTRONICALLY SIGNED BY: SERA BREWER MD DATE: 04/06/251858 [facility] [address] [place] [id number] IMAGING REPORT Signed PATIENT: MAURICE BUI MR#: [id number] : 1960 SEX: F AGE: 64 LOCATION: EDHIP ORDER 1419 STATUS: ADM IN REPORT#: [id number] SERVICE 08 REASON: hypertension urgency ORDERING PHYSICIAN: ARAM HERNANDEZ MD PROCEDURE: HEAD WO - CT HEAD/BRAIN W/O CONTRAST EXAM: CT Head Without IV contrast. CLINICAL HISTORY: hypertension urgency TECHNIQUE: Axial computed tomography images of the head/brain without intravenous contrast. COMPARISON: None provided. FINDINGS: BRAIN: No evidence of acute hemorrhage. No mass lesion. No CT evidence for acute territorial infarct. No midline shift or extra-axial collections. VENTRICLES: No hydrocephalus. ORBITS: The orbits are unremarkable. SINUSES AND MASTOIDS: The paranasal sinuses and mastoid air cells are clear. BONES: No fracture. SOFT TISSUES: Unremarkable. IMPRESSION: No acute intracranial abnormality. /[place] DICTATED BY: SERA BREWER MD DATE: 04/06/251652 ELECTRONICALLY SIGNED BY: SERA BREWER MD DATE: 04/06/251652 [facility] [address] [place] [id number] IMAGING REPORT Signed PATIENT: MAURICE BUI MR#: [id number] : 1960 SEX: F AGE: 64 LOCATION: 2CH ORDER 1401 STATUS: ADM IN REPORT#: [id number] SERVICE 1359 REASON: chf ORDERING PHYSICIAN: CHRISS MAR MD PROCEDURE: ECHO CMP - ECHO 2-D COMPLETE APPROVED REPORT EXAM: Two-dimensional and M-mode echocardiogram with Doppler and color Doppler. INDICATION ICD: congestive heart failure 2D Dimensions RVDd 5.3 cm LVEF(%) 45.0 (>50%) LVED Vol(simp.) 142.0 mL IVSd 1.2 (0.7-1.1cm) FS(%) 23 % LVES Vol(simp.) 97.0 mL LVDd 5.8 (3.8-5.6cm) LA (2D) 4.7 (1.6-4.0cm) LVEF(%, simp.) 32 % PWd 1.6 (0.7-1.1cm) Ao Root(2D) 2.8 (2.0-3.7cm) LA ESV INDEX (BP) 38.51 mL/m2 LVDs 4.4 (2.5-4.0cm) LVOT diam 2.0 (1.8-2.4cm) IVC diam 2.0 cm Deformation Strain Apical 4 -7.6 % Apical 2 -10.4 % Apical 3 -7.1 % Global Strain -8.4 % M-Mode Dimensions EPSS 1.5 cm LA (MM) 5.5 (1.6-4.0cm) Ao Root(MM) 2.5 (2.0-3.7cm) Aortic Valve AoV Vmax 1.6 m/s Ao Peak GR 10.1 mmHg LVOT Vmax 1.1 m/s AoV VTI 0.3 m Ao Mean GR 5.9 mmHg LVOT VTI 0.17 m ALICIA (VMAX) 2.19 cm2 ALICIA (VTI) 1.8 cm2 Mitral Valve MV E Vmax 91.6 cm/s DECEL Time 166 ms MV A Vmax 76.2 cm/s P 1/2 T 37 ms E/A ratio 1.2 MVA (PHT) 5.9 cm2 TDI E/E' Medial 17.6 E/E' Lateral 16.7 Medial E' Peak V 5.20 cm/s Lateral E' Peak V 5.47 cm/s Pulmonary Valve PV Vmax 1.2 m/s PV VTI 0.22 m PV Mean GR 3.0 mmHg PV Peak GR 5.9 mmHg PI End Shawanda. Ernesto 120.3 cm/s Tricuspid Valve TR Vmax 2.6 m/s RAP (EST) 3 mmHg RVSP 31.6 mmHg TR Peak GR 28.6 mmHg Left Ventricle The left ventricle is mildly dilated. Hypokinetic basal inferoseptal segment. Moderate concentric left ventricular hypertrophy. LVEF is 30-35%. Stage II di astolic dysfunction. Right Ventricle The right ventricle is severely dilated. Right ventricular systolic function is mildly reduced. Atria The left atrium is mildly dilated. The right atrium is severely dilated. Aortic Valve The aortic valve is normal in structure and function. No aortic regurgitation is present. There is no aortic valvular stenosis. Mitral Valve The mitral valve is normal in structure. Mitral regurgitation is trace. There is no mitral valve stenosis. Tricuspid Valve The tricuspid valve is normal in structure. There is mild tricuspid valve regurgitation noted. Pulmonic Valve The pulmonary valve is normal in structure. There is trace pulmonic valvular regurgitation. Great Vessels The aortic root is normal in size. The IVC is normal in size and collapses >50% with inspiration. Pericardium No pericardial effusion. Other Information Quality : Good Rhythm : NSR Conclusion The left ventricle is mildly dilated. LVEF is 30-35%. Hypokinetic basal inferoseptal segment. Stage II diastolic dysfunction. The right ventricle is severely dilated. Right ventricular systolic function is mildly reduced. The left atrium is mildly dilated. The right atrium is severely dilated. DICTATED BY: ALEXSANDRA GONZALEZ DO DATE: 04/07/25 1016 ELECTRONICALLY SIGNED BY: ALEXSANDRA GONZALEZ DO DATE: 04/07/25 1336 ASSESSMENT: Hypertensive urgency POA Uncontrolled chronic hypertension Acute on chronic combined systolic and diastolic heart failure Pericardial effusion POA Hypokalemia Proteinuria POA Possible CKD PLAN: Hypertensive urgency Uncontrolled chronic hypertension Her BP at the time of admission is 206/134. Today her blood pressure is 155/71. CT head is normal Abdominal arterial ultrasound showed left artery stenosis >60% and right artery stenosis <60%. Cardiology was consulted and they recommended to continue Lasix 40 mg IV b.i.d, started on metoprolol tartrate 25 mg every 8 hours and spironolactone 25 mg daily. Will follow their recommendations. Acute on chronic combined systolic and diastolic heart failure 2D echo on 04/07/2025 with an EF of 30-35%, stage II diastolic dysfunction, hypokinetic basal inferoseptal segment, mildly reduced RV systolic function, mildly dilated left atrium, and severely dilated right atrium BNP of 1440 CXR with cardiomegaly and pulmonary vascular congestion Cardiology was consulted and they recommended to continue Lasix 40 mg IV b.i.d, started on metoprolol tartrate 25 mg every 8 hours and spironolactone 25 mg daily, undergo an ischemic evaluation to assess coronary anatomy prior to discharge. Will follow their recommendations. Lipid panel, BMP are ordered. Pericardial effusion Echocardiogram is ordered and it showed no pericardial effusion. Hypokalemia Today his potassium level is 3. We replaced potassium today. Will repeat the labs tomorrow. Possible CKD Proteinuria Urinalysis showed protein 300, nitrates 2+. Urine culture is ordered and the preliminary report >100,000 CFU gram negative rods. Urine protein/creatinine ratio ordered. DVT prophylaxis with SCD. GI prophylaxis with famotidine. ATTESTATION BY PHYSICIAN I have seen and examined the patient. I reviewed the documentation, medical decision making, and treatment plan as noted by the resident provider above. I agree with the findings and plan of care. Chriss Mar MD, AKSHAY MD Apr 07, 2025 09:44
[2025-04-07] MEDS: amLODIPine 5 MG TAB PO SCH (10:47)
--- NOTE | 2025-04-07 12:18 | CONS ---
[facility] CARDIOLOGY CONSULTATION REPORT Cardiology consultation note dictated for Michelle Ribeiro MD Date Patient Seen: Apr 07, 2025 Requesting Physician: Chriss Mar MD Reason for Consultation: Concern for CHF and hypertensive urgency History of Present Illness: This is a 64-year-old female with a past history of hypertension who presented to the ED complaints of dyspnea on minimal exertion and bilateral lower extremity edema. Cardiology has been consulted for concern for CHF and hypertensive urgency. The patient endorsed increasing fatigue and dyspnea on exertion since July 2024. Over the last month and a half, she noticed her bilateral lower extremities swelling with extension up to her abdomen. Over the last 3 weeks, she began to experience orthopnea, PND, and progressive dyspnea with minimal exertion. BNP of 1440. Chest x-ray demonstrated cardiomegaly and pulmonary vascular congestion. She is currently being diuresed with Lasix 40 mg IV b.i.d.. 2D echocardiogram has been ordered and is pending. She also presented with an elevated blood pressure of 206/134 mmHg. She has been weaned off the Cardene drip. Current blood pressure is 168/87 mmHg. Past Medical History: As per HPI and summarized below Past Surgical History: Family History: The patient's mother has hypertension. The patient's father of a presumed ruptured aneurysm. Social History: The patient lives with family. Habits: The patient denies alcohol, tobacco, or illicit drug use. Home Meds: None Current Meds: Medications Dose Ordered Sig/Thuy Start Time Stop Time Status Last Admin Acetaminophen 650 mg Q6H PRN 04/06/25 14:30 05/06/25 14:29 Acetaminophen 650 mg Q4H PRN 04/06/25 14:30 05/06/25 14:29 Albuterol Sulfate 2.5 mg U1AFALL PRN 04/06/25 14:30 05/06/25 14:29 Furosemide 40 mg BID 04/06/25 21:00 05/06/25 20:59 04/07/25 08:56 Magnesium Sulfate 50 ml @ 0 mls/hr PROTOCOL PRN 04/06/25 14:30 05/06/25 14:29 Potassium Chloride 20 meq AD PRN 04/06/25 14:30 05/06/25 14:29 Potassium Chloride 20 meq AD PRN 04/06/25 14:30 05/06/25 14:29 04/07/25 10:52 Potassium Chloride 100 ml @ 50 mls/hr AD PRN 04/06/25 14:30 05/06/25 14:29 Hydralazine HCl 10 mg Q4H PRN 04/06/25 18:20 05/06/25 18:19 Famotidine 20 mg BID 04/07/25 21:00 05/07/25 20:59 Losartan Potassium 50 mg DAILY 04/07/25 11:00 05/07/25 10:59 04/07/25 10:47 Amlodipine Besylate 5 mg DAILY 04/07/25 11:00 05/07/25 10:59 04/07/25 10:47 Review of Systems: CONST: No fever, fatigue, or weight changes. EYES: No recent vision problems. ENT: No congestion, ear pain, or sore throat. C/V: No chest pain, palpitations, or edema. RESP: No cough, congestion, wheezing or shortness of breath. GI: No abdominal pain, nausea, vomiting, constipation, or diarrhea. : No incontinence or dysuria. SKIN: No rash. NEURO: No headache, focal numbness or weakness, dizziness, or seizures. PSYCH: No depression or anxiety. HEME: No abnormal bruising or bleeding. LYMPH: No swollen glands. Physical Examination: GENERAL: No acute distress. HEAD: Normal with no signs of head trauma. EYES: PERRLA, EOMI, conjunctiva and sclera normal. ENT: Hearing grossly intact, normal oropharynx. NECK: Supple without JVD. There is no tenderness, lymphadenopathy, or masses. No thyromegaly. Normal carotid upstrokes without bruits. LUNGS: Clear breath sounds bilaterally. No wheezes, or rhonchi. HEART: Normal rate and rhythm. Normal S1 and S2 without murmurs, gallop or rub. VASC: Peripheral pulses +1 bilaterally. ABD: Bowel sounds normal, soft, nontender, no masses, no organomegaly. No audible bruits. : Not examined LYMPH: No lymphadenopathy noted. EXT: LLE with 1 to 2+ edema, RLE with trace to 1+ edema. Anasarca with edema to legs and lower abdomen. SKIN: No rashes or lesions noted. NEURO: Awake, alert, and oriented x3. No focal sensory or strength deficits noted. Vital Signs (last 8hr) Date Time Temp Pulse Resp B/P (MAP) Pulse Ox O2 Delivery O2 Flow Rate FiO2 04/07/25 08:48 84 22 140/69 (92) 94 04/07/25 08:30 82 20 126/74 (91) 94 04/07/25 08:15 88 20 145/73 (97) 93 04/07/25 08:00 80 20 152/88 (109) 93 60 04/07/25 07:45 98.1 79 24 146/80 (102) 97 04/07/25 07:15 89 17 144/71 (95) 95 04/07/25 07:04 81 16 N/Cannula Low lpm 2.0 28 04/07/25 07:00 80 16 147/77 (100) 96 21 04/07/25 06:57 84 20 144/71 (95) 96 04/07/25 06:42 84 17 147/77 (100) 94 04/07/25 06:27 77 20 139/73 (95) 95 04/07/25 06:12 81 17 142/72 (95) 94 04/07/25 05:57 84 19 145/77 (99) 94 04/07/25 05:42 78 17 140/70 (93) 96 04/07/25 05:27 77 17 150/65 (93) 96 04/07/25 05:12 83 19 154/71 (98) 95 04/07/25 04:57 84 20 155/71 (99) 92 04/07/25 04:42 83 20 160/80 (106) 92 04/07/25 04:27 81 18 143/72 (95) 92 Laboratory: Hematology Labs: Test 04/07/25 03:54 Range/Units White Blood Count 7.0 4.8-10.8 K/uL Red Blood Count 4.24 4.00-5.50 MIL/uL Hemoglobin 12.3 12.0-16.0 g/dL Hematocrit 37.2 36-48 % Mean Corpuscular Volume 87.7 79-99 fL Mean Corpuscular Hemoglobin 29.0 27.0-33.0 pg Mean Corpuscular Hemoglobin Concent 33.1 32.0-36.0 g/dL Red Cell Distribution Width 14.4 11.0-15.5 % Platelet Count 193 130-400 K/uL Mean Platelet Volume 10.0 7.5-10.5 fL Immature Granulocyte % (Auto) 0.3 0-1 % Neutrophils (%) (Auto) 72.8 40.0-77.0 % Lymphocytes (%) (Auto) 14.2 L 21.0-51.0 % Monocytes (%) (Auto) 9.3 3.0-13.0 % Eosinophils (%) (Auto) 2.7 0.0-8.0 % Basophils (%) (Auto) 0.7 0.0-5.0 % Neutrophils # (Auto) 5.1 1.8-7.7 K/uL Lymphocytes # (Auto) 1.0 1.0-4.8 K/uL Monocytes # (Auto) 0.7 0.1-1.0 K/uL Eosinophils # (Auto) 0.19 0.00-0.70 K/uL Basophils # (Auto) 0.05 0.00-0.20 K/uL Absolute Immature Granulocyte (auto 0.02 0-1 K/uL Nucleated Red Blood Cells 0.0 0.0-0.19 % Chemistry Labs: Test 04/07/25 03:54 04/06/25 14:33 04/06/25 10:40 Range/Units Sodium Level 141 136-145 mmol/L Potassium Level 3.0 *L 3.5-5.1 mmol/L Chloride Level 106 101-111 mmol/L Carbon Dioxide Level 28 21-32 mmol/L Blood Urea Nitrogen 8 7-18 mg/dL Creatinine 0.9 0.5-1.0 mg/dL Glomerular Filtration Rate Calc 71 >90 mL/min Random Glucose 86 70-105 mg/dL Total Calcium 8.7 8.5-10.1 mg/dL Phosphorus Level 3.7 2.5-4.9 mg/dL Magnesium Level 1.90 1.80-2.40 mg/dL Total Bilirubin 1.0 0.2-1.0 mg/dL Aspartate Amino Transf (AST/SGOT) 21 10-37 U/L Alanine Aminotransferase (ALT/SGPT) 15 12-78 U/L Alkaline Phosphatase 83 50-136 U/L Troponin I High Sensitivity 23 4-50 ng/L Total Protein 7.1 6.0-8.3 g/dL Albumin 3.4 L 3.5-5.0 g/dL B-Type Natriuretic Peptide 1440 H 0-100 pg/mL Diagnostics / Radiology: 2D echocardiogram on 04/07/2025 Conclusion The left ventricle is mildly dilated. LVEF is 30-35%. Hypokinetic basal inferoseptal segment. Stage II diastolic dysfunction. The right ventricle is severely dilated. Right ventricular systolic function is mildly reduced. The left atrium is mildly dilated. The right atrium is severely dilated. DICTATED BY: MICHELLE RIBEIRO DO DATE: 04/07/25 1016 Impression and Plan: Acute on chronic combined systolic and diastolic heart failure 2D echo on 04/07/2025 with an EF of 30-35% with stage II diastolic dysfunction Hypertensive urgency Left renal artery stenosis >60% and right renal artery stenosis <60% via Renal Doppler on 04/06/2025 Acute on chronic combined systolic and diastolic heart failure 2D echo on 04/07/2025 with an EF of 30-35%, stage II diastolic dysfunction, hypokinetic basal inferoseptal segment, mildly reduced RV systolic function, mildly dilated left atrium, and severely dilated right atrium BNP of 1440. CXR with cardiomegaly and pulmonary vascular congestion -Continue Lasix 40 mg IV b.i.d. -Start metoprolol tartrate 50 bid and spironolactone 25 mg daily -Plan to discontinue amlodipine -The patient will need to undergo an ischemic evaluation. Given the option of coronary angiography vs CCTA and she elects for the latter. Advised for abnormal CCTA, may need to undergo coronary angiography. Hypertensive urgency Admission BP of 206/[address] head without acute findings Has been weaned off Cardene infusion -Continue losartan 50 mg daily and amlodipine 5 mg daily -Start metoprolol tartrate 50mg bid and spironolactone 25 mg daily [facility] Apr 07, 2025 12:18 MICHELLE RIBEIRO DO Apr 08, 2025 09:19
--- NOTE | 2025-04-07 13:15 | NUR ---
[facility] ICU Skin Assessment: Patient assessed by wound healing team. Patient with no wounds or skin breakdown noted. Assessment and recommendations provided to primary nurse. Education provided. Addendum: 04/08/25 at 1540 by HEMAL CHAVEZ RN RN/ Amended: Links added.
--- NOTE | 2025-04-07 13:36 | HMCSR ---
APPROVED REPORT EXAM: Two-dimensional and M-mode echocardiogram with Doppler and color Doppler. INDICATION ICD: congestive heart failure 2D Dimensions RVDd5.3 cmLVEF(%)45.0 (>50%)LVED Vol(simp.)142.0 mL IVSd1.2 (0.7-1.1cm)FS(%)23 %LVES Vol(simp.)97.0 mL LVDd5.8 (3.8-5.6cm)LA (2D)4.7 (1.6-4.0cm)LVEF(%, simp.)32 % PWd1.6 (0.7-1.1cm)Ao Root(2D)2.8 (2.0-3.7cm)LA ESV INDEX (BP)38.51 mL/m2 LVDs4.4 (2.5-4.0cm)LVOT diam2.0 (1.8-2.4cm) IVC diam2.0 cm Deformation Strain Apical 4-7.6 % Apical 2-10.4 % Apical 3-7.1 % Global Strain-8.4 % M-Mode Dimensions EPSS1.5 cm LA (MM)5.5 (1.6-4.0cm) Ao Root(MM)2.5 (2.0-3.7cm) Aortic Valve AoV Vmax1.6 m/Mago Peak GR10.1 mmHgLVOT Vmax1.1 m/s AoV VTI0.3 mAo Mean GR5.9 mmHgLVOT VTI0.17 m ALICIA (VMAX)2.19 cm2AVA (VTI) 1.8 cm2 Mitral Valve MV E Vmax91.6 cm/sDECEL [id number] ms MV A Vmax76.2 cm/sP 1/2 T37 ms E/A ratio1.2MVA (PHT)5.9 cm2 TDI E/E' [id number]/E' [id number] Medial E' Peak V5.20 cm/sLateral E' Peak V5.47 cm/s Pulmonary Valve PV Vmax1.2 m/sPV VTI0.22 mPV Mean GR3.0 mmHg PV Peak GR5.9 mmHgPI End Shawanda. Ernesto 120.3 cm/s Tricuspid Valve TR Vmax2.6 m/sRAP (EST) 3 jpMcRWAL28.6 mmHg TR Peak GR28.6 mmHg Left Ventricle The left ventricle is mildly dilated. Hypokinetic basal inferoseptal segment. Moderate concentric lef t ventricular hypertrophy. LVEF is 30-35%. Stage II diastolic dysfunction. Right Ventricle The right ventricle is severely dilated. Right ventricular systolic function is mildly reduced. Atria The left atrium is mildly dilated. The right atrium is severely dilated. Aortic Valve The aortic valve is normal in structure and function. No aortic regurgitation is present. There is no aortic valvular stenosis. Mitral Valve The mitral valve is normal in structure. Mitral regurgitation is trace. There is no mitral valve sten osis. Tricuspid Valve The tricuspid valve is normal in structure. There is mild tricuspid valve regurgitation noted. Pulmonic Valve The pulmonary valve is normal in structure. There is trace pulmonic valvular regurgitation. Great Vessels The aortic root is normal in size. The IVC is normal in size and collapses >50% with inspiration. Pericardium No pericardial effusion. Other Information Quality : GoodRhythm : NSR Conclusion The left ventricle is mildly dilated. LVEF is 30-35%. Hypokinetic basal inferoseptal segment. Stage II diastolic dysfunction. The right ventricle is severely dilated. Right ventricular systolic function is mildly reduced. The left atrium is mildly dilated. The right atrium is severely dilated.
--- NOTE | 2025-04-07 15:33 | NUR ---
EDUCATION Reenforced prior education regarding measuring of urine output by use of nun's cap. Pt had previously been instructed on use/purpose/importance of nun's cap, especially in the setting of diuresis. Pt initially voiced understanding but has now twice removed nun's cap when she has been up to the bathroom. Pt made aware that nun's cap is to remain in place and that all urine output is to be measured - rationale explained. Pt once again acknowledged understanding.
[2025-04-07] MEDS: SPIRONOLACTONE 25 MG TAB PO SCH (17:39)
[2025-04-07] MEDS: FAMOTIDINE 20MG TAB PO SCH (21:17)
[2025-04-08] VITALS (15 sets, daily range): BP systolic 129–161; BP diastolic 67–103; PULSE 62–81; RESP 10–28; TEMP 98–98.7; O2SAT 96–97
[2025-04-08 05:34] LABS: NUCLEATED RED BLOOD CELLS 0.0 % (0.0-0.19); PLATELET COUNT (AUTO) 231.0 K/uL (130-400); RED BLOOD CELL COUNT(AUTO) 4.48 MIL/uL (4.00-5.50); RED CELL DISTRIBUTION WIDTH 14.2 % (11.0-15.5); WHITE BLOOD COUNT (AUTO) 6.9 K/uL (4.8-10.8)
[2025-04-08 05:41] LABS: CREATININE 1.0 mg/dL (0.5-1.0); GLOMERULAR FILTR. RATE CALC 63.0 mL/min (>90); GLUCOSE,RANDOM 88.0 mg/dL (70-105); LDL DIRECT 66.0 mg/dL (0-99); SODIUM SERUM 141.0 mmol/L (136-145); UREA NITROGEN, BLOOD 12.0 mg/dL (7-18)
[2025-04-08] MEDS ORDERED: IOHEXOL 350 MG/ML 100ML INFUS..BTL IV ONE (09:17)
[2025-04-08] MEDS ORDERED: LIDOCAINE HCL 400MG/20ML VIAL ONE (09:17)
[2025-04-08] MEDS ORDERED: NITROGLYCERIN 50MG VIAL ONE (09:18)
[2025-04-08] MEDS ORDERED: HEParin-NS 1,000 UNIT/500 ML 1,000 ML IV ONE (09:18)
[2025-04-08] MEDS ORDERED: VERAPAMIL HCL 2.5 MG/ML VIAL ONE (09:38)
[2025-04-08 09:41] LABS: INR 1.14 (0.85-1.15)
[2025-04-08] MEDS ORDERED: MIDAZOLAM HCL 1 MG/ML 2ML VIAL ONE (10:14)
--- NOTE | 2025-04-08 11:03 | PRN ---
Cath Procedure Report CATH PROCEDURE REPORT CARDIAC CATHETERIZATION REPORT Date of Service: Apr 08, 2025 PROCEDURE: Left heart catheterization with selective right and left coronary angiography Conscious sedation INDICATION: Cardiomyopathy DIRECTOR OPERATING: Alexsandra Ribeiro DO DESCRIPTION OF PROCEDURE: The patient was prepped and draped in sterile fashion. Time out performed. Conscious sedation was administered by independent qualified cathlab RN under my direct supervision and there were no complications secondary to sedation. 2% lidocaine was used at the Right wrist. Using ultrasound guidance, the right radial artery was accessed with placement of 6Fr hydrophilic sheath. The sideport was aspiration, flushed with heparinized saline, and vasodilatory cocktail of 2.5 mg Verapamil and 200 mcg of Nitroglycerin was administered intra-arterially. Over an 035 J wire, a 5French JR4 catheter was advanced into the ascending aorta and used to cross the aortic valve for LVEDP measurement and pullback across the aortic valve. The 5French JR 4 was used to selective engage the right coronary artery and multiple angiographic views were taken. A 5 Swedish JL 3.5 catheter was used to selectively engage the Left coronary artery and multiple angiographic views were taken. All catheters and wires were removed and hemostasis achieved with use of transradial band. The patient tolerated the procedure without any complications and were awake, conversational post procedure. FINDINGS: Left main: Ostial 10-20% Left anterior descending artery: long segment in mid of 10-20% luminal narrowing. There is a large caliber first diagonal branch which bifurcates in its mid portion with mild diffuse disease of a small inferior branch. The LAD then extends to wrap around the apex and is otherwise angiographically normal. Large caliber septal branch patent. Left circumflex: Codominant coronary system. OM1 ostial 40% narrowing. It bifurcate distally into a very small <1mm caliber inferior branch which has a subtotal occlusion in its mid portion with reconstitution. Again, this is a very small branch and not amenable to percutaneous intervention. The OM2 is large, angiographically normal, giving off small inferior branches. Right coronary artery: Proximal 20% luminal narrowing. RPDA and RPLE angiographically free of disease. HEMODYNAMICS: Aortic pressure of 104/32, mean 64 mmHg Left ventricle 167 mmHg Left ventricular end diastolic pressure 12 mmHg No gradient on pullback across the aortic valve CONTRAST: 30 ml FLUOROSCOPY TIME: 2.2 minutes SUMMARY: 1. Minimal coronary artery disease 2. Non ischemic cardiomyopathy ALEXSANDRA RIBEIRO DO Apr 08, 2025 11:03
[2025-04-08] MEDS: 0.9%NACL 1000ML 1,000 ML IV SCH (11:45)
--- NOTE | 2025-04-08 14:31 | PN ---
[facility] PROGRESS NOTE Date of Service: Apr 08, 2025 Time of Service: 14:06 SUBJECTIVE: This is a 64-year-old female with past medical history of hypertension who presents to the emergency department due to progressive shortness of breath and worsening lower extremity edema. The patient reports that her symptoms began around July of last year, when she started experiencing dyspnea with regular household activities. Over the past several months, her shortness of breath has gradually worsened, limiting her daily functionality. Approximately1 month ago, she began noticing swelling in both legs, which has since progressed to involve the thighs and pelvic region. She reports significant discomfort and difficulty ambulating due to the edema. She denies recent weight gain but notes a sensation of heaviness in the legs. She has not seen her primary care provider in approximately 2 years. At that time, she was diagnosed with hypertension and was prescribed lisinopril 15 mg daily, which she is compliant with. On arrival to the ED, her blood pressure was markedly elevated at 206/134 mmHg with a heart rate of 112 bpm. Initial labs unremarkable other than an elevated BNP of 1440 pg/mL and a creatinine of 1.1 mg/dL. Urinalysis was positive for protein (300), nitrites, and blood. A chest X-ray showed moderate pericardial effusion and moderate pulmonary vascular congestion. She was given two doses of hydralazine and furosemide 40mg in the ER. After this her blood pressure is 225/106 so she was started on nicardipine drip and moved to [facility]. After the nicardipine drip her blood pressure is 152/65. Nicardipine drip was discontinued and furosemide 40 mg was added. Cardiology consult, echocardiogram and protein creatinine ratio are ordered. 04/07/2025: She was seen in room 215. She is having no symptoms. Her vitals are in the normal except for blood pressure which is 155/71. Her labs show that potassium is 3, creatinine is 0.9, Albumin is 3.4. Her head CT is normal. US abdominal arterial study showed left artery stenosis >60% and right artery stenosis <60%. Her echocardiogram showed that the left ventricle is mildly dilated, LVEF is 30-35%, hypokinetic basal inferoseptal segment, stage II diastolic dysfunction, the right ventricle is severely dilated, right ventricular systolic function is mildly reduced, the left atrium is mildly dilated, the right atrium is severely dilated. cardiology saw the patient and they recommended to continue lasix 40mg, losartan 50mg and start metoprolol tartarate 25mg, spironolactone 25mg, also patient need to go an ischemic evaluation to assess coronary anatomy prior to discharge. Will follow their recommendations. 04/08/2025: She was seen in room 215. She is having no symptoms. She has no symptoms and lower extremity edema is decreasing. Her vitals are in the normal range. Her labs are normal except for BNP -963. Today she had a left heart catheterization with selective right and left coronary angiography. It showed minimal coronary artery disease and nonischemic cardiomyopathy. Her urine culture showed E.Coli and so we started nitrofurantoin 100 mg. REVIEW OF SYSTEMS CONSTITUTIONAL: Denies fevers, chills, or night sweats. No unintentional weight loss reported. NEUROLOGICAL: Denies headache, amaurosis fugax, motor weakness, sensory deficit, vertigo/spinning sensation, gait abnormalities, or tremors. ENT: No hearing loss, otalgia, otorrhea, rhinitis, rhinorrhea, hoarseness, or sore throat. CARDIOVASCULAR: Denies any exertional angina, palpitations, dyspnea on exertion, orthopnea, paroxysmal nocturnal dyspnea, life-threatening arrhythmias, claudication. PULMONARY: No shortness of breath, worse with activity. Denies cough or hemoptysis. SLEEP: Denies morning headaches, daytime somnolence or napping. Denies difficulty falling asleep, staying asleep, waking from sleep. Denies knowledge of snoring. GASTROINTESTINAL: Denies any type of dysphagia to either liquids or solids. Denies nausea, vomiting, pyrosis, early satiety, abdominal pain, diarrhea, constipation, or changes in stool consistency or caliber. Denies coffee-ground emesis, hematemesis, hematochezia, or melanotic stools. GENITOURINARY: Denies frequency, urgency, nocturia, hematuria or incontinence (Storage/Irritative symptoms.) Low urinary stream, straining to void, urinary intermittency or hesitancy, splitting of the voiding stream, terminal dribbling. ENDOCRINOLOGIC: Denies polyuria, polydipsia, polyphagia or heat/cold intolerances. HEMATOLOGIC: Denies thrombophilia/previous clots, or coagulopathy/bleeding disorders. ONCOLOGIC: Denies personal history of malignancy. DERMATOLOGIC: Denies rashes or pruritus. PHYSICAL EXAM GENERAL APPEARANCE: The patient is awake, alert, and oriented, in no acute cardiopulmonary distress. NEUROLOGICAL: Cranial nerves II-XII grossly intact. Motor is 5/5 in bilateral upper and lower extremities proximal to distal. No sensory deficits. HEENT: Face is symmetric. Pupils are equal and reactive. Extraocular movements are intact. NECK: Supple. No thyromegaly. No submental, submandibular, pre-/postauricular, occipital or supraclavicular lymphadenopathy. CHEST: Normal chest expansion. Telemetry. LUNGS: No Bibasilar crackles. No wheezing. Mild increasing work of breathing with exertion. CARDIOVASCULAR: S1 and S2 normal. No appreciable rubs, murmurs or gallops. ABDOMEN: Soft, nontender, and nondistended. There is no rebound, voluntary guarding, or rigidity. : Deferred. No [place]. EXTREMITIES: 3+ pitting edema bilateral lower extremity up to the pelvis. No erythema or warmth. No calf tenderness. SKIN: No skin breakdown. Vital Signs (last 8hr) Date Time Temp Pulse Resp B/P (MAP) Pulse Ox O2 Delivery O2 Flow Rate FiO2 04/08/25 13:00 75 21 129/68 94 Room Air 04/08/25 12:00 75 10 134/81 94 Room Air 04/08/25 11:30 74 11 147/81 93 Room Air 04/08/25 11:15 76 11 142/80 96 Room Air 04/08/25 11:00 76 10 137/84 96 Room Air 04/08/25 10:00 96 Room Air* 0 21 04/08/25 08:00 98.2 62 16 159/95 98 Room Air 04/08/25 07:05 69 28 156/103 98 Room Air LABS: Laboratory: Test 04/08/25 09:24 04/08/25 04:59 04/07/25 03:54 04/06/25 14:33 Range/Units Prothrombin Time 11.9 H 9.6-11.6 SEC Prothromb Time International Ratio 1.14 0.85-1.15 White Blood Count 6.9 4.8-10.8 K/uL Red Blood Count 4.48 4.00-5.50 MIL/uL Hemoglobin 13.0 12.0-16.0 g/dL Hematocrit 39.2 36-48 % Mean Corpuscular Volume 87.5 79-99 fL Mean Corpuscular Hemoglobin 29.0 27.0-33.0 pg Mean Corpuscular Hemoglobin Concent 33.2 32.0-36.0 g/dL Red Cell Distribution Width 14.2 11.0-15.5 % Platelet Count 231 130-400 K/uL Mean Platelet Volume 10.3 7.5-10.5 fL Nucleated Red Blood Cells 0.0 0.0-0.19 % Sodium Level 141 136-145 mmol/L Potassium Level 3.8 3.5-5.1 mmol/L Chloride Level 106 101-111 mmol/L Carbon Dioxide Level 31 21-32 mmol/L Blood Urea Nitrogen 12 7-18 mg/dL Creatinine 1.0 0.5-1.0 mg/dL Glomerular Filtration Rate Calc 63 >90 mL/min Random Glucose 88 70-105 mg/dL Hemoglobin A1c 5.6 4.0-6.0 % Estimated Average Glucose (eAG) 114 70-126 mg/dL Total Calcium 8.9 8.5-10.1 mg/dL B-Type Natriuretic Peptide 963 H 0-100 pg/mL Triglycerides Level 53 30-200 mg/dL Cholesterol Level 130 <200 mg/dL LDL Cholesterol 66 0-99 mg/dL HDL Cholesterol 61 35-85 mg/dL Immature Granulocyte % (Auto) 0.3 0-1 % Neutrophils (%) (Auto) 72.8 40.0-77.0 % Lymphocytes (%) (Auto) 14.2 L 21.0-51.0 % Monocytes (%) (Auto) 9.3 3.0-13.0 % Eosinophils (%) (Auto) 2.7 0.0-8.0 % Basophils (%) (Auto) 0.7 0.0-5.0 % Neutrophils # (Auto) 5.1 1.8-7.7 K/uL Lymphocytes # (Auto) 1.0 1.0-4.8 K/uL Monocytes # (Auto) 0.7 0.1-1.0 K/uL Eosinophils # (Auto) 0.19 0.00-0.70 K/uL Basophils # (Auto) 0.05 0.00-0.20 K/uL Absolute Immature Granulocyte (auto 0.02 0-1 K/uL Phosphorus Level 3.7 2.5-4.9 mg/dL Magnesium Level 1.90 1.80-2.40 mg/dL Total Bilirubin 1.0 0.2-1.0 mg/dL Aspartate Amino Transf (AST/SGOT) 21 10-37 U/L Alanine Aminotransferase (ALT/SGPT) 15 12-78 U/L Alkaline Phosphatase 83 50-136 U/L Troponin I High Sensitivity 23 4-50 ng/L Total Protein 7.1 6.0-8.3 g/dL Albumin 3.4 L 3.5-5.0 g/dL Current Medications Medications (Trade) Dose Ordered Sig/Thuy Route PRN Reason Start Time Stop Time Status Last Admin Dose Admin Acetaminophen (TYLenol 325MG TAB) 650 mg Q4H PRN PO MILD PAIN (1-3) 04/06/25 14:30 05/06/25 14:29 Acetaminophen (TYLenol 325MG TAB) 650 mg Q6H PRN PO TEMPERATURE GREATER THAN 101.5 04/06/25 14:30 05/06/25 14:29 Albuterol Sulfate (Proventil 0.083% 2.5mg/3ml) 2.5 mg [id number] PRN IH RESPIRATORY SYMPTOMS 04/06/25 14:30 05/06/25 14:29 Amlodipine Besylate (NorvASC 5MG TAB) 5 mg DAILY PO 04/07/25 11:00 05/07/25 10:59 04/08/25 07:40 5 MG Carvedilol (Coreg 6.25MG) 6.25 mg BID PO 04/07/25 12:30 04/07/25 13:30 DC 04/07/25 12:27 6.25 MG Famotidine (Pepcid 20mg Vial) 20 mg BID IV 04/06/25 21:00 04/07/25 09:06 DC 04/06/25 21:28 20 MG Famotidine (Pepcid 20mg Tab) 20 mg BID PO 04/07/25 21:00 05/07/25 20:59 04/08/25 07:40 20 MG Furosemide (LASix 40MG VIAL) 40 mg BID IVP 04/06/25 21:00 05/06/25 20:59 04/08/25 07:40 40 MG Furosemide (LASix 40MG VIAL) 40 mg ONCE IV 04/06/25 13:30 04/06/25 14:20 DC 04/06/25 13:07 40 MG Hydralazine HCl (APRESOLine 20MG INJ) 10 mg ONCE IV 04/06/25 15:00 04/06/25 14:57 DC Hydralazine HCl (APRESOLine 20MG INJ) 10 mg ONCE IV 04/06/25 16:00 04/06/25 18:00 DC 04/06/25 17:53 10 MG Hydralazine HCl (APRESOLine 20MG INJ) 10 mg Q4H PRN IV ADMINISTER FOR SBP > 180 04/06/25 18:20 05/06/25 18:19 Losartan Potassium (CozAAR 50 mg TAB) 50 mg BID PO 04/08/25 21:00 05/07/25 10:59 Losartan Potassium (CozAAR 50 mg TAB) 50 mg DAILY PO 04/07/25 11:00 04/08/25 11:02 DC 04/08/25 07:40 50 MG Magnesium Sulfate 50 ml @ 0 mls/hr PROTOCOL PRN IV MAGNESIUM PROTOCOL 04/06/25 14:30 05/06/25 14:29 Metoprolol Tartrate (loprESSOR) 25 mg TID PO 04/07/25 14:00 04/07/25 13:49 DC Metoprolol Tartrate (loprESSOR) 50 mg BID PO 04/07/25 21:00 05/07/25 13:59 04/08/25 07:40 50 MG Nicardipine HCl 25 mg/Sodium Chloride 250 ml @ 0 mls/hr PROTOCOL IV 04/06/25 18:30 04/06/25 21:30 DC Nicardipine HCl 25 mg/Sodium Chloride 250 ml @ 0 mls/hr PROTOCOL IV 04/06/25 22:30 05/06/25 18:29 Cancel Nicardipine HCl 50 mg/Sodium Chloride 250 ml @ 0 mls/hr PROTOCOL IV 04/06/25 19:00 04/07/25 10:20 DC Nitrofurantoin Macrocrystals (Macrobid) 100 mg Q12H PO 04/08/25 21:00 04/18/25 20:59 Potassium Chloride 100 ml @ 50 mls/hr AD PRN IV POTASSIUM PROTOCOL 04/06/25 14:30 05/06/25 14:29 Potassium Chloride 100 ml @ 100 mls/hr AD PRN IV POTASSIUM PROTOCOL 04/06/25 14:30 04/06/25 14:22 DC Potassium Chloride (K-Dur/Klor-Con 20meq) 20 meq AD PRN PO POTASSIUM PROTOCOL 04/06/25 14:30 05/06/25 14:29 04/07/25 12:30 20 MEQ Potassium Chloride (KCl 10% Elixir 20meq/15ml) 20 meq AD PRN PO POTASSIUM PROTOCOL 04/06/25 14:30 05/06/25 14:29 Sodium Chloride 1,000 ml @ 100 mls/hr Q10H IV 04/08/25 11:00 04/08/25 12:59 DC 04/08/25 11:45 100 MLS/HR Spironolactone (Aldactone 25mg) 25 mg DAILY PO 04/07/25 16:00 05/07/25 15:59 04/08/25 07:40 25 MG DIAGNOSTICS / RADIOLOGY: [ ] ASSESSMENT: Hypertensive urgency POA Uncontrolled chronic hypertension Acute on chronic combined systolic and diastolic heart failure Pericardial effusion POA Hypokalemia Urinary tract infection Proteinuria POA Possible CKD PLAN: Hypertensive urgency Uncontrolled chronic hypertension Her BP at the time of admission is 206/134. Today her blood pressure is 129/68. CT head is normal Abdominal arterial ultrasound showed left artery stenosis >60% and right artery stenosis <60%. Cardiology was consulted and they recommended to continue Lasix 40 mg IV b.i.d, started on metoprolol tartrate 25 mg every 8 hours and spironolactone 25 mg daily. Will follow their recommendations. Acute on chronic combined systolic and diastolic heart failure 2D echo on 04/07/2025 with an EF of 30-35%, stage II diastolic dysfunction, hypokinetic basal inferoseptal segment, mildly reduced RV systolic function, mildly dilated left atrium, and severely dilated right atrium Today BNP is decreased from 1440 to 963. CXR with cardiomegaly and pulmonary vascular congestion Cardiology was consulted and they recommended to continue Lasix 40 mg IV b.i.d, started on metoprolol tartrate 25 mg every 8 hours and spironolactone 25 mg daily. Today she underwent a left heart catheterization with selective right and left coronary angiography and it showed minimal coronary artery disease and nonisch emic cardiomyopathy. Will follow their recommendations. Lipid panel, BMP are ordered. Pericardial effusion Echocardiogram is ordered and it showed no pericardial effusion. Hypokalemia Today his potassium level is 3.8 Will repeat the labs tomorrow. Urinary tract infection Urine cultures showed >[id number] CFU/ml and it grew E.coli. Started on Nitrofurantoin 100 mg (day 1). Possible CKD Proteinuria Urinalysis showed protein 300, nitrates 2+. Urine protein/creatinine ratio ordered. DVT prophylaxis with SCD. GI prophylaxis with famotidine. ATTESTATION BY PHYSICIAN I have seen and examined the patient. I reviewed the documentation, medical decision making, and treatment plan as noted by the resident provider above. I agree with the findings and plan of care. Chriss Mar MD, AKSHAY MD Apr 08, 2025 14:31
--- NOTE | 2025-04-08 17:04 | NUR ---
RECEIVED REPORT FROM SRINIVASA. PATIENT NOW IN 227 FROM 215. S/P LEFT HEART CATH. RADIAL BAND REMOVED BY SRINIVASA. PATIENT IN NO DISTRESS NOR PAIN.
[2025-04-08] MEDS: NITROFURANTOIN MONOHYD/M-CRYST 100 MG CAPSULE PO SCH (20:22)
[2025-04-09 00:30] VITALS: BP 155/95; PULSE 72; RESP 18; TEMP 98.3
[2025-04-09 03:45] LABS: NUCLEATED RED BLOOD CELLS 0.0 % (0.0-0.19); PLATELET COUNT (AUTO) 217.0 K/uL (130-400); RED BLOOD CELL COUNT(AUTO) 4.63 MIL/uL (4.00-5.50); RED CELL DISTRIBUTION WIDTH 14.1 % (11.0-15.5); WHITE BLOOD COUNT (AUTO) 6.7 K/uL (4.8-10.8)
[2025-04-09 04:04] LABS: CREATININE 1.2 mg/dL (0.5-1.0); GLOMERULAR FILTR. RATE CALC 51.0 mL/min (>90); GLUCOSE,RANDOM 87.0 mg/dL (70-105); SODIUM SERUM 141.0 mmol/L (136-145); UREA NITROGEN, BLOOD 20.0 mg/dL (7-18)
[2025-04-09 04:30] VITALS: BP 139/95; PULSE 74; RESP 18; TEMP 98.1
[2025-04-09 08:00] VITALS: BP 175/94; PULSE 72; RESP 17; TEMP 97.6; O2SAT 98
--- NOTE | 2025-04-09 08:56 | PN ---
[facility] CARDIOLOGY PROGRESS NOTE Date Patient Seen: Apr 09, 2025 Time of Visit: 08:53 Problem List: Acute HFREF, new diagnosis POD 1 from [facility] showing minimal CAD, well tolerated from radial approach on room air, no shortness of breath Physical Examination: GENERAL: [No acute distress.] NECK: [Normal carotid upstrokes without bruits.] LUNGS: [Clear breath sounds bilaterally. No wheezes, or rhonchi.] HEART: [Normal rate and rhythm. Normal S1 and S2 without murmurs, gallop or rub.] VASC: [Peripheral pulses +2 bilaterally.right radial artery access nontender 2+ pulse no hematoma or ecchymoses] EXT: [No clubbing, cyanosis or edema.] SKIN: [No rashes or lesions noted.] NEURO: [Awake, alert, and oriented x3. No focal sensory or strength deficits noted.] Laboratory: [ ] Hematology Labs: Test 04/09/25 03:23 Range/Units White Blood Count 6.7 4.8-10.8 K/uL Red Blood Count 4.63 4.00-5.50 MIL/uL Hemoglobin 13.4 12.0-16.0 g/dL Hematocrit 40.2 36-48 % Mean Corpuscular Volume 86.8 79-99 fL Mean Corpuscular Hemoglobin 28.9 27.0-33.0 pg Mean Corpuscular Hemoglobin Concent 33.3 32.0-36.0 g/dL Red Cell Distribution Width 14.1 11.0-15.5 % Platelet Count 217 130-400 K/uL Mean Platelet Volume 10.3 7.5-10.5 fL Nucleated Red Blood Cells 0.0 0.0-0.19 % Chemistry Labs: Test 04/09/25 03:23 04/08/25 04:59 Range/Units Sodium Level 141 136-145 mmol/L Potassium Level 3.5 3.5-5.1 mmol/L Chloride Level 104 101-111 mmol/L Carbon Dioxide Level 30 21-32 mmol/L Blood Urea Nitrogen 20 H 7-18 mg/dL Creatinine 1.2 H 0.5-1.0 mg/dL Glomerular Filtration Rate Calc 51 >90 mL/min Random Glucose 87 70-105 mg/dL Total Calcium 8.5 8.5-10.1 mg/dL Hemoglobin A1c 5.6 4.0-6.0 % Estimated Average Glucose (eAG) 114 70-126 mg/dL B-Type Natriuretic Peptide 963 H 0-100 pg/mL Triglycerides Level 53 30-200 mg/dL Cholesterol Level 130 <200 mg/dL LDL Cholesterol 66 0-99 mg/dL HDL Cholesterol 61 35-85 mg/dL Coagulation Labs: Test 04/08/25 09:24 Range/Units Prothrombin Time 11.9 H 9.6-11.6 SEC Prothromb Time International Ratio 1.14 0.85-1.15 Impression and Plan: Acute HFREF, new diagnosis EF 30-35% Minimal coronary artery disease Hypertensive urgency Fortunately, only minimal CAD by [facility]. Continue ASA, statin Unfortunately, patient does not have health insurance. Continue current GDMT, however unable to afford Entresto and SGLT2-i. We can follow up with patient in clinic and if she is able to secure some insurance, we can uptitrate her medical therapy Discontinue the lasix now that she is on GDMT. Her LVEDP during LHC was low. Recommend repeat echo in 3 months for LVSF evaluation ALEXSANDRA GONZALEZ DO Apr 09, 2025 08:56
[2025-04-09] MEDS ORDERED: DAPA10TA PO (10:02)
[2025-04-09] MEDS ORDERED: ATOR20TA65 PO (10:02)
[2025-04-09] MEDS ORDERED: FURO40TA7 PO (10:02)
[2025-04-09] MEDS ORDERED: SPIR25TA6 PO (10:02)
[2025-04-09] MEDS ORDERED: LOSA50TA64 PO (10:02)
[2025-04-09] MEDS ORDERED: AMLO-257 PO (10:02)
[2025-04-09] MEDS ORDERED: METO-391 PO (10:02)
[2025-04-09] MEDS ORDERED: ASPI-1197 PO (10:02)
--- NOTE | 2025-04-09 11:21 | DS ---
Discharge Summary Hospital Course Summary: Patient information: Name: Maurice Elias Date of : 1960 Admission date: 04/06/2025 Discharge date: 04/09/2025 Attending physician: Dr. Chriss Mar Admitting diagnosis: Hypertensive urgency POA Possible Congestive Heart Failure POA Pericardial effusion POA Proteinuria POA Possible CKD Uncontrolled chronic hypertension Discharge diagnosis: Hypertensive urgency POA Uncontrolled chronic hypertension Acute on chronic combined systolic and diastolic heart failure Pericardial effusion POA Hypokalemia Urinary tract infection Proteinuria POA Possible CKD Course in hospital: She is a 64 year old female with past medical history of hypertension presented to the ER with progressive shortness of breath and worsening lower extremity edema. Her symptoms began around July of last year. Over the past several months, her shortness of breath had gradually worsened, limiting her daily functionality. Approximately 1 month ago, she began noticing swelling in both legs, which has since progressed to involve the thighs and pelvic region. She reports significant discomfort and difficulty ambulating due to the edema. She denied recent weight gain but noted a sensation of heaviness in the legs. She has not seen her primary care provider in approximately 2 years. At that time, she was diagnosed with hypertension and was prescribed lisinopril 15 mg daily, which she was compliant with. In ED her blood pressure was 206/134 with a heart rate of 112 bpm. Labs showed that her BNP is 1440 and creatinine 1.1. Urinalysis was positive (300), nitrites and blood. A chest X-ray showed moderate pericardial effusion and moderate pulmonary vascular congestion. She was given two doses of hydralazine and furosemide 40mg in the ER. After this her blood pressure is 225/106 so she was started on nicardipine drip and moved to [facility]. After the nicardipine drip her blood pressure is 152/65. Nicardipine drip was discontinued and furosemide 40 mg was added. Her echocardiogram showed that the left ventricle was mildly dilated, LVEF is 30- 35%, hypokinetic basal inferoseptal segment, stage II diastolic dysfunction, the right ventricle was severely dilated, right ventricular systolic function was mildly reduced, the left atrium was mildly dilated, the right atrium was severely dilated. Protein creatinine ratio was ordered. Her head CT is normal. US abdominal arterial study showed left artery stenosis >60% and right artery stenosis <60%. Cardiology saw the patient and they recommended to continue lasix 40mg, losartan 50mg and start metoprolol tartarate 25mg, spironolactone 25mg and they did a left heart catheterization with selective right and left coronary angiography. It showed minimal coronary artery disease and nonischemic cardiomyopathy. Her urine culture showed E.Coli and so we started nitrofurantoin 100 mg. On 04/09/2025 she has no symptoms and her vitals are normal. Her labs are normal except for BUN 20. Cardiology saw the patient and they recommended to continue aspirin,atorvastatin and current GDMT, follow up with cardiology, repeat echocardiogram in 3 months for LVSF evaluation. She is medically stable and ready for discharge. So we are discharging her. Procedures performed: Chest x-ray, abdominal arterial study ultrasound, head CT, echocardiogram ultrasound, director of cardiac cath lab procedure Medications on discharge: 1) Amlodipine besylate 5mg 1 tab PO daily 2) Aspirin 81mg 1 tab PO Daily 3) Atorvastatin 20mg 1 tab PO daily 3) Dapagliflozin 10mg 1 tab PO daily 4) Furosemide 40mg 1 tab PO daily 5) Losartan 50mg 1 tab PO BID 6) Metoprolol succinate 50mg 1 tab PO BID 7) Spironolactone 25 mg 1 Tab PO daily 8) Nitrofurantoin 100mg 1 tab BID for 5 days. Discharge instructions: 1) Follow up with primary care physician in 2 to 3 days. 2) Follow up with cardiology in 1 to 2 weeks. 3) Repeat echocardiogram in 3 months. 4) Do not lift heavy objects for 2 days. 5) Check your weight daily. 6) Follow up with primary care physician within 2 to 3 days after discharge. 7) Continue all medications as prescribed. Do not discontinue or change doses without consulting your PCP. 8) Gradually resume normal activities as tolerated. 9) Continue a balanced diet. 10) Seek immediate medical attention if you experience chest pain, SOB, or severe headache. 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 [place] [address] [facility] CARDIOLOGY CONSULTATION REPORT Cardiology consultation note dictated for Michelle Ribeiro MD Date Patient Seen: Apr 07, 2025 Requesting Physician: Chriss Mar MD Reason for Consultation: Concern for CHF and hypertensive urgency History of Present Illness: This is a 64-year-old female with a past history of hypertension who presented to the ED complaints of dyspnea on minimal exertion and bilateral lower extremity edema. Cardiology has been consulted for concern for CHF and hypertensive urgency. The patient endorsed increasing fatigue and dyspnea on exertion since July 2024. Over the last month and a half, she noticed her bilateral lower extremities swelling with extension up to her abdomen. Over the last 3 weeks, she began to experience orthopnea, PND, and progressive dyspnea with minimal exertion. BNP of 1440. Chest x-ray demonstrated cardiomegaly and pulmonary vascular congestion. She is currently being diuresed with Lasix 40 mg IV b.i.d.. 2D echocardiogram has been ordered and is pending. She also presented with an elevated blood pressure of 206/134 mmHg. She has been weaned off the Cardene drip. Current blood pressure is 168/87 mmHg. Past Medical History: As per HPI and summarized below Past Surgical History: Family History: The patient's mother has hypertension. The patient's father of a presumed ruptured aneurysm. Social History: The patient lives with family. Habits: The patient denies alcohol, tobacco, or illicit drug use. Home Meds: None Current Meds: Medications Dose Ordered Sig/Thuy Start Time Stop Time Status Last Admin Acetaminophen 650 mg Q6H PRN 04/06/25 14:05/06/25 14:29 Acetaminophen 650 mg Q4H PRN 04/06/25 14:30 05/06/25 14:29 Albuterol Sulfate 2.5 mg [id number] PRN 04/06/25 14:30 05/06/25 14:29 Furosemide 40 mg BID 04/06/25 21:00 05/06/25 20:59 04/07/25 08:56 Magnesium Sulfate 50 ml @ 0 mls/hr PROTOCOL PRN 04/06/25 14:30 05/06/25 14:29 Potassium Chloride 20 meq AD PRN 04/06/25 14:30 05/06/25 14:29 Potassium Chloride 20 meq AD PRN 04/06/25 14:30 05/06/25 14:29 04/07/25 10:52 Potassium Chloride 100 ml @ 50 mls/hr AD PRN 04/06/25 14:30 05/06/25 14:29 Hydralazine HCl 10 mg Q4H PRN 04/06/25 18:20 05/06/25 18:19 Famotidine 20 mg BID 04/07/25 21:00 05/07/25 20:59 Losartan Potassium 50 mg DAILY 04/07/25 11:00 05/07/25 10:59 04/07/25 10:47 Amlodipine Besylate 5 mg DAILY 04/07/25 11:00 05/07/25 10:59 04/07/25 10:47 Review of Systems: CONST: No fever, fatigue, or weight changes. EYES: No recent vision problems. ENT: No congestion, ear pain, or sore throat. C/V: No chest pain, palpitations, or edema. RESP: No cough, congestion, wheezing or shortness of breath. GI: No abdominal pain, nausea, vomiting, constipation, or diarrhea. : No incontinence or dysuria. SKIN: No rash. NEURO: No headache, focal numbness or weakness, dizziness, or seizures. PSYCH: No depression or anxiety. HEME: No abnormal bruising or bleeding. LYMPH: No swollen glands. Physical Examination: GENERAL: No acute distress. HEAD: Normal with no signs of head trauma. EYES: PERRLA, EOMI, conjunctiva and sclera normal. ENT: Hearing grossly intact, normal oropharynx. NECK: Supple without JVD. There is no tenderness, lymphadenopathy, or masses. No thyromegaly. Normal carotid upstrokes without bruits. LUNGS: Clear breath sounds bilaterally. No wheezes, or rhonchi. HEART: Normal rate and rhythm. Normal S1 and S2 without murmurs, gallop or rub. VASC: Peripheral pulses +1 bilaterally. ABD: Bowel sounds normal, soft, nontender, no masses, no organomegaly. No audible bruits. : Not examined LYMPH: No lymphadenopathy noted. EXT: LLE with 1 to 2+ edema, RLE with trace to 1+ edema. Anasarca with edema to legs and lower abdomen. SKIN: No rashes or lesions noted. NEURO: Awake, alert, and oriented x3. No focal sensory or strength deficits noted. Vital Signs (last 8hr) Date Time Temp Pulse Resp B/P (MAP) Pulse Ox O2 Delivery O2 Flow Rate FiO2 04/07/25 08:48 84 22 140/69 (92) 94 04/07/25 08:30 82 20 126/74 (91) 94 04/07/25 08:15 88 20 145/73 (97) 93 04/07/25 08:00 80 20 152/88 (109) 93 60 04/07/25 07:45 98.1 79 24 146/80 (102) 97 04/07/25 07:15 89 17 144/71 (95) 95 04/07/25 07:04 81 16 N/Cannula Low lpm 2.0 28 04/07/25 07:00 80 16 147/77 (100) 96 21 04/07/25 06:57 84 20 144/71 (95) 96 04/07/25 06:42 84 17 147/77 (100) 94 04/07/25 06:27 77 20 139/73 (95) 95 04/07/25 06:12 81 17 142/72 (95) 94 04/07/25 05:57 84 19 145/77 (99) 94 04/07/25 05:42 78 17 140/70 (93) 96 04/07/25 05:27 77 17 150/65 (93) 96 04/07/25 05:12 83 19 154/71 (98) 95 04/07/25 04:57 84 20 155/71 (99) 92 04/07/25 04:42 83 20 160/80 (106) 92 04/07/25 04:27 81 18 143/72 (95) 92 Laboratory: Hematology Labs: Test 04/07/25 03:54 Range/Units White Blood Count 7.0 4.8-10.8 K/uL Red Blood Count 4.24 4.00-5.50 MIL/uL Hemoglobin 12.3 12.0-16.0 g/dL Hematocrit 37.2 36-48 % Mean Corpuscular Volume 87.7 79-99 fL Mean Corpuscular Hemoglobin 29.0 27.0-33.0 pg Mean Corpuscular Hemoglobin Concent 33.1 32.0-36.0 g/dL Red Cell Distribution Width 14.4 11.0-15.5 % Platelet Count 193 130-400 K/uL Mean Platelet Volume 10.0 7.5-10.5 fL Immature Granulocyte % (Auto) 0.3 0-1 % Neutrophils (%) (Auto) 72.8 40.0-77.0 % Lymphocytes (%) (Auto) 14.2 L 21.0-51.0 % Monocytes (%) (Auto) 9.3 3.0-13.0 % Eosinophils (%) (Auto) 2.7 0.0-8.0 % Basophils (%) (Auto) 0.7 0.0-5.0 % Neutrophils # (Auto) 5.1 1.8-7.7 K/uL Lymphocytes # (Auto) 1.0 1.0-4.8 K/uL Monocytes # (Auto) 0.7 0.1-1.0 K/uL Eosinophils # (Auto) 0.19 0.00-0.70 K/uL Basophils # (Auto) 0.05 0.00-0.20 K/uL Absolute Immature Granulocyte (auto 0.02 0-1 K/uL Nucleated Red Blood Cells 0.0 0.0-0.19 % Chemistry Labs: Test 04/07/25 03:54 04/06/25 14:33 04/06/25 10:40 Range/Units Sodium Level 141 136-145 mmol/L Potassium Level 3.0 *L 3.5-5.1 mmol/L Chloride Level 106 101-111 mmol/L Carbon Dioxide Level 28 21-32 mmol/L Blood Urea Nitrogen 8 7-18 mg/dL Creatinine 0.9 0.5-1.0 mg/dL Glomerular Filtration Rate Calc 71 >90 mL/min Random Glucose 86 70-105 mg/dL Total Calcium 8.7 8.5-10.1 mg/dL Phosphorus Level 3.7 2.5-4.9 mg/dL Magnesium Level 1.90 1.80-2.40 mg/dL Total Bilirubin 1.0 0.2-1.0 mg/dL Aspartate Amino Transf (AST/SGOT) 21 10-37 U/L Alanine Aminotransferase (ALT/SGPT) 15 12-78 U/L Alkaline Phosphatase 83 50-136 U/L Troponin I High Sensitivity 23 4-50 ng/L Total Protein 7.1 6.0-8.3 g/dL Albumin 3.4 L 3.5-5.0 g/dL B-Type Natriuretic Peptide 1440 H 0-100 pg/mL Diagnostics / Radiology: 2D echocardiogram on 04/07/2025 Conclusion The left ventricle is mildly dilated. LVEF is 30-35%. Hypokinetic basal inferoseptal segment. Stage II diastolic dysfunction. The right ventricle is severely dilated. Right ventricular systolic function is mildly reduced. The left atrium is mildly dilated. The right atrium is severely dilated. DICTATED BY: MICHELLE RIBEIRO DO DATE: 04/07/25 1016 Impression and Plan: Acute on chronic combined systolic and diastolic heart failure 2D echo on 04/07/2025 with an EF of 30-35% with stage II diastolic dysfunction Hypertensive urgency Left renal artery stenosis >60% and right renal artery stenosis <60% via Renal Doppler on 04/06/2025 Acute on chronic combined systolic and diastolic heart failure 2D echo on 04/07/2025 with an EF of 30-35%, stage II diastolic dysfunction, hypokinetic basal inferoseptal segment, mildly reduced RV systolic function, mildly dilated left atrium, and severely dilated right atrium BNP of 1440. CXR with cardiomegaly and pulmonary vascular congestion -Continue Lasix 40 mg IV b.i.d. -Start metoprolol tartrate 50 bid and spironolactone 25 mg daily -Plan to discontinue amlodipine -The patient will need to undergo an ischemic evaluation. Given the option of coronary angiography vs CCTA and she elects for the latter. Advised for abnormal CCTA, may need to undergo coronary angiography. Hypertensive urgency Admission BP of 206/[address] head without acute findings Has been weaned off Cardene infusion -Continue losartan 50 mg daily and amlodipine 5 mg daily -Start metoprolol tartrate 50mg bid and spironolactone 25 mg daily [facility] Apr 07, 2025 12:18 MICHELLE RIBEIRO DO Apr 08, 2025 09:19 Electronically Signed by: [facility]04/07/25 1821 Electronically Co-Signed by: MICHELLE RIBEIRO DO04/08/25 0919 Procedure(s): [place] [address] [place] [address] IMAGING REPORT Signed PATIENT: MAURICE ELIAS MR#: [id number] : 1960 SEX: F AGE: 64 LOCATION: [facility] ORDER 1034 STATUS: REG ER REPORT#: [id number] SERVICE 103 REASON: sob ORDERING PHYSICIAN: LEN CORNELL MD PROCEDURE: CXR1VW - CHEST 1VW EXAM: CR Chest, 1 View. CLINICAL HISTORY: sob COMPARISON: None provided. FINDINGS: LUNGS: The lungs show no infiltrate or other acute finding. Mild bibasilar airspace disease may reflect atelectasis. PLEURAL SPACES: No evidence of pleural effusion or pneumothorax. MEDIASTINUM: Moderate to severe enlargement of the cardiac silhouette likely reflecting cardiomegaly and/or a pericardial effusion. Mild central pulmonary vascular congestion. BONES: No acute osseous abnormality. IMPRESSION: 1. Moderate to severe cardiomegaly and/or pericardial effusion with mild pulmonary vascular congestion. /Marshall DICTATED BY: JESSICA TRIVEDI Jr., MD DATE: 04/06/251211 ELECTRONICALLY SIGNED BY: JESSICA TRIVEDI Jr., MD DATE: 04/06/251211 [place] [address] IMAGING REPORT Signed PATIENT: MAURICE ELIAS MR#: [id number] : 1960 SEX: F AGE: 64 LOCATION: H ORDER 140 [facility] REPORT#: [id number] SERVICE 140 REASON: ckd ORDERING PHYSICIAN: CHRISS MAR MD PROCEDURE: LELAND ART DO - US RENAL ARTERY DOPPLER EXAM: US Duplex Arterial/Venous of the Abdomen, Complete. CLINICAL HISTORY: Chronic Kidney Disease (CKD) TECHNIQUE: Real-time duplex ultrasound scan of the arterial and venous flow of the pelvis with color Doppler flow and spectral waveform analysis. COMPARISON: None provided. FINDINGS: AORTA: Peak systolic velocity (PSV) of 104 cm/sec. RENAL ARTERIES: Right renal artery with peak systolic velocity of 226 cm/sec and renal artery to aorta ratio (RAR) of 2.2, consistent with <60% stenosis. Left renal artery with elevated peak systolic velocity of 384 cm/sec and RAR of 3.7, consistent with >60% stenosis. Size: 9.7 x 4.3 x 4.2 cm. Segmental arteries demonstrate tardus-parvus waveform, suggestive of downstream arterial resistance and supportive of hemodynamically significant stenosis. Size: 10.8 x 4.5 x 5.2 cm. Segmental arteries demonstrate tardus-parvus waveform, suggestive of downstream arterial resistance and supportive of hemodynamically significant stenosis, more prominently on the left. IMPRESSION: 1. Left renal artery stenosis >60% with tardus-parvus waveform in segmental arteries, suggesting downstream arterial resistance and supportive of hemodynamically significant stenosis. 2. Right renal artery stenosis <60% with tardus-parvus waveform in segmental arteries, suggesting downstream arterial resistance. /Marshall DICTATED BY: SERA BREWER MD DATE: 04/06/251858 ELECTRONICALLY SIGNED BY: SERA BREWER MD DATE: 04/06/251858 [place] [address] IMAGING REPORT Signed PATIENT: MAURICE ELIAS MR#: [id number] : 1960 SEX: F AGE: 64 LOCATION: [facility] ORDER 1419 STATUS: ADM IN REPORT#: [id number] SERVICE 1409 REASON: hypertension urgency ORDERING PHYSICIAN: ARAM HERNANDEZ MD PROCEDURE: HEAD WO - CT HEAD/BRAIN W/O CONTRAST EXAM: CT Head Without IV contrast. CLINICAL HISTORY: hypertension urgency TECHNIQUE: Axial computed tomography images of the head/brain without intravenous contrast. COMPARISON: None provided. FINDINGS: BRAIN: No evidence of acute hemorrhage. No mass lesion. No CT evidence for acute territorial infarct. No midline shift or extra-axial collections. VENTRICLES: No hydrocephalus. ORBITS: The orbits are unremarkable. SINUSES AND MASTOIDS: The paranasal sinuses and mastoid air cells are clear. BONES: No fracture. SOFT TISSUES: Unremarkable. IMPRESSION: No acute intracranial abnormality. /Marshall DICTATED BY: SERA BREEWR MD DATE: 04/06/251652 ELECTRONICALLY SIGNED BY: SERA BREWER MD DATE: 04/06/251652 [place] [address] [address] IMAGING REPORT Signed PATIENT: MAURICE ELIAS MR#: [id number] : 1960 SEX: F AGE: 64 LOCATION: [facility] ORDER 1401 STATUS: ADM IN REPORT#: [id number] SERVICE 1359 REASON: chf ORDERING PHYSICIAN: CHRISS MAR MD PROCEDURE: ECHO CMP - ECHO 2-D COMPLETE APPROVED REPORT EXAM: Two-dimensional and M-mode echocardiogram with Doppler and color Doppler. INDICATION ICD: congestive heart failure 2D Dimensions RVDd 5.3 cm LVEF(%) 45.0 (>50%) LVED Vol(simp.) 142.0 mL IVSd 1.2 (0.7-1.1cm) FS(%) 23 % LVES Vol(simp.) 97.0 mL LVDd 5.8 (3.8-5.6cm) LA (2D) 4.7 (1.6-4.0cm) LVEF(%, simp.) 32 % PWd 1.6 (0.7-1.1cm) Ao Root(2D) 2.8 (2.0-3.7cm) LA ESV INDEX (BP) 38.51 mL/m2 LVDs 4.4 (2.5-4.0cm) LVOT diam 2.0 (1.8-2.4cm) IVC diam 2.0 cm Deformation Strain Apical 4 -7.6 % Apical 2 -10.4 % Apical 3 -7.1 % Global Strain -8.4 % M-Mode Dimensions EPSS 1.5 cm LA (MM) 5.5 (1.6-4.0cm) Ao Root(MM) 2.5 (2.0-3.7cm) Aortic Valve AoV Vmax 1.6 m/s Ao Peak GR 10.1 mmHg LVOT Vmax 1.1 m/s AoV VTI 0.3 m Ao Mean GR 5.9 mmHg LVOT VTI 0.17 m ALICIA (VMAX) 2.19 cm2 ALICIA (VTI) 1.8 cm2 Mitral Valve MV E Vmax 91.6 cm/s DECEL Time 166 ms MV A Vmax 76.2 cm/s P 1/2 T 37 ms E/A ratio 1.2 MVA (PHT) 5.9 cm2 TDI E/E' Medial 17.6 E/E' Lateral 16.7 Medial E' Peak V 5.20 cm/s Lateral E' Peak V 5.47 cm/s Pulmonary Valve PV Vmax 1.2 m/s PV VTI 0.22 m PV Mean GR 3.0 mmHg PV Peak GR 5.9 mmHg PI End Shawanda. Ernesto 120.3 cm/s Tricuspid Valve TR Vmax 2.6 m/s RAP (EST) 3 mmHg RVSP 31.6 mmHg TR Peak GR 28.6 mmHg Left Ventricle The left ventricle is mildly dilated. Hypokinetic basal inferoseptal segment. Moderate concentric left ventricular hypertrophy. LVEF is 30-35%. Stage II diastolic dysfunction. Right Ventricle The right ventricle is severely dilated. Right ventricular systolic function is mildly reduced. Atria The left atrium is mildly dilated. The right atrium is severely dilated. Aortic Valve The aortic valve is normal in structure and function. No aortic regurgitation is present. There is no aortic valvular stenosis. Mitral Valve The mitral valve is normal in structure. Mitral regurgitation is trace. There is no mitral valve stenosis. Tricuspid Valve The tricuspid valve is normal in structure. There is mild tricuspid valve regurgitation noted. Pulmonic Valve The pulmonary valve is normal in structure. There is trace pulmonic valvular regurgitation. Great Vessels The aortic root is normal in size. The IVC is normal in size and collapses >50% with inspiration. Pericardium No pericardial effusion. Other Information Quality : Good Rhythm : NSR Conclusion The left ventricle is mildly dilated. LVEF is 30-35%. Hypokinetic basal inferoseptal segment. Stage II diastolic dysfunction. The right ventricle is severely dilated. Right ventricular systolic function is mildly reduced. The left atrium is mildly dilated. The right atrium is severely dilated. DICTATED BY: MICHELLE RIBEIRO DO DATE: 04/07/25 1016 ELECTRONICALLY SIGNED BY: MICHELLE RIBEIRO DO DATE: 04/07/25 1336 PROCEDURE NOTE Name: MAURICE ELIAS Acct: [id number] MR: [id number] : 1960 Admit Date: 04/06/25 MICHELLE RIBEIRO DO [facility] [address] [address] Cath Procedure Report CATH PROCEDURE REPORT CARDIAC CATHETERIZATION REPORT Date of Service: Apr 08, 2025 PROCEDURE: Left heart catheterization with selective right and left coronary angiography Conscious sedation INDICATION: Cardiomyopathy [employer]: Michelle Ribeiro DO DESCRIPTION OF PROCEDURE: The patient was prepped and draped in sterile fashion. Time out performed. Conscious sedation was administered by independent qualified cathlab RN under my direct supervision and there were no complications secondary to sedation. 2% lidocaine was used at the Right wrist. Using ultrasound guidance, the right radial artery was accessed with placement of 6Fr hydrophilic sheath. The sideport was aspiration, flushed with heparinized saline, and vasodilatory cocktail of 2.5 mg Verapamil and 200 mcg of Nitroglycerin was administered intra-arterially. Over an 035 J wire, a 5French JR4 catheter was advanced into the ascending aorta and used to cross the aortic valve for LVEDP measurement and pullback across the aortic valve. The 5French JR 4 was used to selective engage the right coronary artery and multiple angiographic views were taken. A 5 Icelandic JL 3.5 catheter was used to selectively engage the Left coronary artery and multiple angiographic views were taken. All catheters and wires were removed and hemostasis achieved with use of transradial band. The patient tolerated the procedure without any complications and were awake, conversational post procedure. FINDINGS: Left main: Ostial 10-20% Left anterior descending artery: long segment in mid of 10-20% luminal narrowing. There is a large caliber first diagonal branch which bifurcates in its mid portion with mild diffuse disease of a small inferior branch. The LAD then extends to wrap around the apex and is otherwise angiographically normal. Large caliber septal branch patent. Left circumflex: Codominant coronary system. OM1 ostial 40% narrowing. It bifurcate distally into a very small <1mm caliber inferior branch which has a subtotal occlusion in its mid portion with reconstitution. Again, this is a very small branch and not amenable to percutaneous intervention. The OM2 is large, angiographically normal, giving off small inferior branches. Right coronary artery: Proximal 20% luminal narrowing. RPDA and RPLE angiographi cecilia free of disease. HEMODYNAMICS: Aortic pressure of 104/32, mean 64 mmHg Left ventricle 167 mmHg Left ventricular end diastolic pressure 12 mmHg No gradient on pullback across the aortic valve CONTRAST: 30 ml FLUOROSCOPY TIME: 2.2 minutes SUMMARY: 1. Minimal coronary artery disease 2. Non ischemic cardiomyopathy MICHELLE RIBEIRO DO Apr 08, 2025 11:03 Electronically Signed by: MICHELLE RIBEIRO DO04/08/251952 Electronically Co-Signed by: Assessment/Plan: ASSESSMENT: Hypertensive urgency POA Uncontrolled chronic hypertension Acute on chronic combined systolic and diastolic heart failure Pericardial effusion POA Hypokalemia, resolved Urinary tract infection Proteinuria POA Possible CKD PLAN: Hypertensive urgency Uncontrolled chronic hypertension Her BP at the time of admission is 206/134. Today her blood pressure is 139/95. CT head is normal Abdominal arterial ultrasound showed left artery stenosis >60% and right artery stenosis <60%. Cardiology was consulted and they recommended to continue Lasix 40 mg IV b.i.d, started on metoprolol tartrate 25 mg every 8 hours and spironolactone 25 mg daily. Today again the cardiology saw the patient and they stooped lasix, continue aspirin,atorvastatin and current GDMT, follow up with cardiology, repeat echocardiogram in 3 months for LVSF evaluation. She is medically stable and ready for discharge. So we are discharging her. Acute on chronic combined systolic and diastolic heart failure 2D echo on 04/07/2025 with an EF of 30-35%, stage II diastolic dysfunction, hypokinetic basal inferoseptal segment, mildly reduced RV systolic function, mildly dilated left atrium, and severely dilated right atrium Today BNP is decreased from 1440 to 963. CXR with cardiomegaly and pulmonary vascular congestion Cardiology was consulted and they recommended to continue Lasix 40 mg IV b.i.d, started on metoprolol tartrate 25 mg every 8 hours and spironolactone 25 mg daily. Today she underwent a left heart catheterization with selective right and left coronary angiography and it showed minimal coronary artery disease and nonischemic cardiomyopathy. Today again the cardiology saw the patient and they stooped lasix, continue aspirin,atorvastatin and current GDMT, follow up with cardiology, repeat echocardiogram in 3 months for LVSF evaluation. She is medically stable and ready for discharge. So we are discharging her. Pericardial effusion Echocardiogram is ordered and it showed no pericardial effusion. Hypokalemia, resolved Today his potassium level is 3.5 Urinary tract infection Urine cultures showed >[id number] CFU/ml and it grew E.coli. Continue Nitrofurantoin 100mg. Possible CKD Proteinuria Urinalysis showed protein 300, nitrates 2+. Discharge Instructions: 1) Follow up with primary care physician in 2 to 3 days. 2) Follow up with cardiology in 1 to 2 weeks. 3) Repeat echocardiogram in 3 months. 4) Do not lift heavy objects for 2 days. 5) Check your weight daily. 6) Follow up with primary care physician within 2 to 3 days after discharge. 7) Continue all medications as prescribed. Do not discontinue or change doses without consulting your PCP. 8) Gradually resume normal activities as tolerated. 9) Continue a balanced diet. 10) Seek immediate medical attention if you experience chest pain, SOB, or severe headache. Home Medications: Active Scripts Dapagliflozin Propanediol (Farxiga) 10 Mg Tablet, 10 MG PO DAILY for 30 Days, #30 TAB Prov:FORTINO KAY 04/09/25 Atorvastatin Calcium (Atorvastatin Calcium) 20 Mg Tablet, 20 MG PO DAILY for 30 Days, #30 TAB Prov:FORTINO KAY 04/09/25 Amlodipine Besylate (Amlodipine Besylate) 5 Mg Tablet, 5 MG PO DAILY for 30 Days, #30 TAB Prov:FORTINO KAY 04/09/25 Furosemide (Lasix 40Mg Tab) 40 Mg Tablet, 40 MG PO DAILY for 30 Days, #30 TAB Prov:FORTINO AKY 04/09/25 Spironolactone (Spironolactone) 25 Mg Tablet, 25 MG PO DAILY for 30 Days, #60 TAB Prov:FORTINO KAY 04/09/25 Metoprolol Succinate (Metoprolol Succinate) 50 Mg Tab.er.24h, 50 MG PO BID for 30 Days, #60 TAB Prov:FORTINO KAY 04/09/25 Losartan Potassium (Losartan Potassium) 50 Mg Tablet, 50 MG PO BID for 30 Days, #60 TAB Prov:KAYFORTINO 04/09/25 Aspirin (Aspirin) 81 Mg Tab.chew, 1 TAB PO DAILY for 30 Days, #30 TAB 0 Refills Prov:RAHULFORTINO Anderson 04/09/25 Time spent arranging discharge: 1-30 minutes ATTESTATION BY PHYSICIAN I have seen and examined the patient. I reviewed the documentation, medical decision making, and treatment plan as noted by the resident provider above. I agree with the findings and plan of care. Chriss Mar MD, AKSHAY MD Apr 09, 2025 11:21
--- NOTE | 2025-04-09 14:00 | NUR ---
DISCHARGE HOME IV,TELEPAK AND ID BANDS REMOVED. DISCHARGE INSTRUCTIONS GIVEN AND EXPLAINED TO PATIENT. BELONGINGS PACKED AND TAKEN BY PATIENT. PATIENT WHEELED DOWN TO PRIVATE CAR.
[2025-04-09] MEDS ORDERED: NITR100C4 PO (17:21)
== END 2025-04-09 13:42 | disposition home or self-care (01) | DRG 286 ==
LOC: EDH 10:28 → EDHIP 10:29 → 2DH 17:34 → 2CH 18:17 → 2DH 04-08 16:00
PROVIDERS: ADMIT Internal Medicine; ATTEND Internal Medicine
PROC: 4A023N7 Measurement of Cardiac Sampling and Pressure, Left Heart, Percutaneous Approach (ICD-10-PCS; principal; 2025-04-08)
PROC: B2111ZZ Fluoroscopy of Multiple Coronary Arteries using Low Osmolar Contrast (ICD-10-PCS; 2025-04-08)
DX: I13.0 Hypertensive heart and chronic kidney disease with heart failure and stage 1 through stage 4 chronic kidney disease, or unspecified chronic kidney disease (principal); I50.43 Acute on chronic combined systolic (congestive) and diastolic (congestive) heart failure; I31.39 Other pericardial effusion (noninflammatory); N39.0 Urinary tract infection, site not specified; I16.0 Hypertensive urgency; N18.9 Chronic kidney disease, unspecified; B96.20 Unspecified Escherichia coli [E. coli] as the cause of diseases classified elsewhere; E87.6 Hypokalemia; I34.0 Nonrheumatic mitral (valve) insufficiency; I42.8 Other cardiomyopathies; I70.1 Atherosclerosis of renal artery; Z79.82 Long term (current) use of aspirin; Z79.899 Other long term (current) drug therapy; Z82.49 Family history of ischemic heart disease and other diseases of the circulatory system
CPT/HCPCS: 36415; 70450; 71045; 76376; 80048; 80053; 80061; 81001; 83036; 83735; 83880; 84100; 84132; 84484; 85025; 85027; 85610; 87086; 87186; 93005; 93306; 93356; 93458; 93975; 96374; 96375; 97161; 99156; 99157; 99285; C1769; G0378; J0360; J1644; J1938; J2250; J3010; J3490; J7050; Q9967; A4649; C1894; Q9965